=== PATIENT | female | born 1970 | race Caucasian/White ===

== ENCOUNTER 2021-08-25 09:54 | Outpatient (REF) | payer BC, OTHER, SELFPAY ==
[2021-08-25 14:06] LABS: MANUAL DIFF FLAG NO
[2021-08-25 14:17] LABS: Basophils Absolute Auto 0.1 X10*3/uL (0.0-0.2); Basophils Percent Auto 0.8 % (0-2); Eosinophils Absolute Auto 0.1 X10*3/uL (0.0-0.4); Eosinophils Percent Auto 1.6 % (0-4); Hematocrit 44.8 % (37-47); Hemoglobin 15.3 g/dl (12.0-16.0); Imm Gran Abs Auto 0.03 X10*3/uL (0.00-0.03); Imm Gran Pct Auto 0.4 % (0.0-0.4); Lymphocytes Absolute Auto 2.3 X10*3/uL (1.2-4.9); Lymphocytes Percent Auto 28.2 % (20-40); Mean Corpuscular HGB Conc 34.2 g/dl (31.0-35.0); Mean Corpuscular Hemoglobin 31.2 pg (27.0-33.0); Mean Corpuscular Volume 91.2 fL (80-98); Mean Platelet Volume 11.5 fL (9.4-12.3); Monocytes Absolute Auto 0.6 X10*3/uL (0.1-1.2); Monocytes Percent Auto 7.8 % (2-11); Neutrophils Absolute Auto 4.9 X10*3/uL (2.0-8.3); Neutrophils Percent Auto 61.2 % (45-73); Platelet Count 321 X10*3/uL (160-400); Red Blood Count 4.91 X10*6/uL (4.20-5.50); Red Cell Distribution Width 11.7 % (11.0-16.0)
[2021-08-25 14:34] LABS: Alanine Aminotransferase 29 U/L (0-31); Albumin Level 3.7 g/dL (3.5-5.0); Alkaline Phosphatase 66 U/L (39-117); Anion Gap 12 (12-20); Aspartate Amino Transferase 16 U/L (5-31); Bilirubin Total 0.3 mg/dL (0.0-1.0); Blood Urea Nitrogen 10 mg/dL (9-16); Calcium 9.1 mg/dL (8.4-10.2); Carbon Dioxide 29 mmol/L (22-29); Chloride 100 mmol/L (96-108); Estimated Glomerular Filt Rate > 60; Glucose Random 366 mg/dL (60-115); Potassium 4.2 mmol/L (3.3-5.1); Sodium 137 mmol/L (135-145); Total Protein 6.5 g/dL (6.5-8.0)
[2021-08-25 14:50] LABS: Free T4 (Free Thyroxine) 0.86 ng/dL (0.71-1.85); Thyroid Stimulating Hormone 1.99 uIU/mL (0.32-4.0)
== END 2021-08-25 09:55 | disposition home or self-care (01) ==
LOC: HO.10HDL 09:54
PROVIDERS: Visit Provider Internal Medicine
DX: R42 Dizziness and giddiness (principal); I10 Essential (primary) hypertension; R63.5 Abnormal weight gain; Z87.09 Personal history of other diseases of the respiratory system
CPT/HCPCS: 36415; 80053; 84439; 84443; 85025

== ENCOUNTER 2021-09-28 07:06 | Outpatient (REF) | payer BC, SELFPAY ==
[2021-09-28 08:37] LABS: Estimated Average Glucose 203 mg/dL; Hemoglobin A1c % 8.7 %
[2021-09-28 08:40] LABS: Anion Gap 13 (12-20); Blood Urea Nitrogen 11 mg/dL (9-16); Calcium 9.3 mg/dL (8.4-10.2); Carbon Dioxide 27 mmol/L (22-29); Chloride 106 mmol/L (96-108); Cholesterol 232 mg/dL; Estimated Glomerular Filt Rate > 60; Glucose Fasting 126 mg/dL (60-99); HDL Cholesterol 42 mg/dL; LDL Cholesterol Calculated 153 mg/dl; Potassium 4.1 mmol/L (3.3-5.1); Sodium 142 mmol/L (135-145); Triglycerides 185 mg/dL
[2021-09-28 09:16] LABS: Creatinine Urine 255.16 mg/dL; Microalbum/Creatinine Ratio Ur 23.5 ug/mg cr
== END 2021-09-28 07:07 | disposition home or self-care (01) ==
LOC: HO.LAB 07:06
PROVIDERS: PCP Internal Medicine; Visit Provider Internal Medicine
DX: E11.9 Type 2 diabetes mellitus without complications (principal); E78.00 Pure hypercholesterolemia, unspecified
CPT/HCPCS: 36415; 80048; 80061; 82043; 83036

== ENCOUNTER 2021-12-31 08:30 | Outpatient (REF) | payer BC, SELFPAY ==
[2021-12-31 10:45] LABS: Estimated Average Glucose 120 mg/dL; Hemoglobin A1c % 5.8 %
[2021-12-31 10:47] LABS: Alanine Aminotransferase 27 U/L (0-31); Alkaline Phosphatase 66 U/L (39-117); Anion Gap 10 (12-20); Aspartate Amino Transferase 22 U/L (5-31); Bilirubin Total 0.6 mg/dL (0.0-1.0); Blood Urea Nitrogen 12 mg/dL (9-16); Calcium 9.8 mg/dL (8.4-10.2); Carbon Dioxide 31 mmol/L (22-29); Chloride 103 mmol/L (96-108); Cholesterol 203 mg/dL; Estimated Glomerular Filt Rate > 60; Glucose Fasting 103 mg/dL (60-99); HDL Cholesterol 52 mg/dL; LDL Cholesterol Calculated 125 mg/dl; Potassium 4.2 mmol/L (3.3-5.1); Sodium 140 mmol/L (135-145); Total Protein 7.2 g/dL (6.5-8.0); Triglycerides 131 mg/dL
== END 2021-12-31 08:31 | disposition home or self-care (01) ==
LOC: HO.10HDL 08:30
PROVIDERS: Visit Provider Internal Medicine
DX: E11.9 Type 2 diabetes mellitus without complications (principal); E78.00 Pure hypercholesterolemia, unspecified
CPT/HCPCS: 36415; 80053; 80061; 83036

== ENCOUNTER 2022-09-20 15:14 | Outpatient (REF) | payer BC, SELFPAY ==
--- NOTE | ~2022-09-20 | US_ITS ---
EXAMINATION: US EXTRACRANIAL CAROTID DUPLEX, BILATERAL CLINICAL INFORMATION: Stroke COMPARISON: None TECHNIQUE: Real-time ultrasound and Doppler techniques (integrating B-mode 2-D vascular images, Doppler spectral analysis and color-flow Doppler imaging) were utilized to interrogate the extracranial carotid arteries, the vertebral arteries and proximal subclavian arteries bilaterally. The degree of stenosis is determined by criteria similar to NASCET. FINDINGS: Right Side: 1. There is moderate atherosclerotic plaque seen in the bifurcation/proximal ICA region. 2. The common carotid artery PSV proximally is 89 cm/s and distally 94 cm/s. 3. The proximal internal carotid artery velocities are 168 cm/s systolic and 50 cm/s diastolic. 4. The proximal external carotid artery PSV is 118 cm/s. 5. The vertebral artery shows antegrade flow. 6. The subclavian artery waveforms are normal. Left Side: 1. There is mild atherosclerotic plaque seen in the bifurcation/proximal ICA region. 2. The common carotid artery PSV proximally is 98 cm/s and distally 90 cm/s. 3. The proximal internal carotid artery velocities are 79 cm/s systolic and 25 cm/s diastolic. 4. The proximal external carotid artery PSV is 78 cm/s. 5. The vertebral artery shows antegrade flow. 6. The subclavian artery waveforms are normal. US/US carotid duplex BI IMPRESSION: 1. RIGHT: Moderate, hemodynamically significant stenosis of the proximal right internal carotid artery corresponding to a 50-79% stenosis by velocity criteria. 2. LEFT: Minimal, non-hemodynamically significant stenosis of the proximal left internal carotid artery corresponding to a 0-49% stenosis by velocity criteria.
== END 2022-09-20 15:15 | disposition home or self-care (01) ==
LOC: HO.HMGCX 15:14
PROVIDERS: PCP Internal Medicine; Visit Provider Internal Medicine
DX: I63.9 Cerebral infarction, unspecified (principal)
CPT/HCPCS: 93880

== ENCOUNTER 2022-12-27 10:13 | Outpatient (REF) | payer BC, SELFPAY ==
[2022-12-27 10:37] LABS: MANUAL DIFF FLAG NO
[2022-12-27 10:45] LABS: Basophils Absolute Auto 0.1 X10*3/uL (0.0-0.2); Basophils Percent Auto 1.4 % (0-2); Eosinophils Absolute Auto 0.3 X10*3/uL (0.0-0.4); Hematocrit 46.6 % (37.0-47.0); Hemoglobin 16.1 g/dl (12.0-16.0); Imm Gran Abs Auto 0.02 X10*3/uL (0.00-0.03); Imm Gran Pct Auto 0.3 % (0.0-0.4); Lymphocytes Absolute Auto 2.2 X10*3/uL (1.2-4.9); Lymphocytes Percent Auto 33.2 % (20-40); Mean Corpuscular HGB Conc 34.5 g/dl (31.0-35.0); Mean Corpuscular Hemoglobin 30.4 pg (27.0-33.0); Mean Corpuscular Volume 88.1 fL (80.0-98.0); Mean Platelet Volume 10.3 fL (9.4-12.3); Monocytes Absolute Auto 0.5 X10*3/uL (0.1-1.2); Monocytes Percent Auto 8.1 % (2-11); Neutrophils Absolute Auto 3.5 x10*3/uL (2.0-8.3); Platelet Count 306 X10*3/uL (160-400); Red Blood Count 5.29 X10*6/uL (4.20-5.50); Red Cell Distribution Width 11.9 % (11.0-16.0); White Blood Count 6.5 X10*3/uL (4.8-10.8)
[2022-12-27 11:04] LABS: Estimated Average Glucose 272 mg/dL; Hemoglobin A1c % 11.1 %
[2022-12-27 11:54] LABS: Alanine Aminotransferase 46 U/L (0-31); Alkaline Phosphatase 99 U/L (39-117); Anion Gap 12 (12-20); Aspartate Amino Transferase 31 U/L (5-31); Bilirubin Total 0.9 mg/dL (0.0-1.0); Blood Urea Nitrogen 9 mg/dL (9-16); Calcium 9.4 mg/dL (8.4-10.2); Carbon Dioxide 31 mmol/L (22-29); Chloride 101 mmol/L (96-108); Cholesterol 228 mg/dL; Estimated Glomerular Filt Rate > 60; Glucose Fasting 238 mg/dL (60-99); HDL Cholesterol 50 mg/dL; LDL Cholesterol Calculated 151 mg/dl; Potassium 4.3 mmol/L (3.3-5.1); Sodium 140 mmol/L (135-145); Triglycerides 138 mg/dL
[2022-12-27 12:01] LABS: Free T4 (Free Thyroxine) 0.88 ng/dL (0.71-1.85)
[2022-12-27 14:19] LABS: Creatinine Urine 40.55 mg/dL; Microalbum/Creatinine Ratio Ur 24.6 ug/mg cr
== END 2022-12-27 10:14 | disposition home or self-care (01) ==
LOC: HO.10HDL 10:13
PROVIDERS: Visit Provider Internal Medicine
DX: Z00.00 Encounter for general adult medical examination without abnormal findings (principal); E11.9 Type 2 diabetes mellitus without complications
CPT/HCPCS: 36415; 80053; 80061; 82043; 83036; 84439; 85025

== ENCOUNTER 2023-02-17 09:58 | Outpatient (REF) | payer BC, SELFPAY ==
[2023-02-17 11:22] LABS: Alanine Aminotransferase 34 U/L (0-31); Albumin Level 3.8 g/dL (3.5-5.0); Alkaline Phosphatase 92 U/L (39-117); Anion Gap 13 (12-20); Aspartate Amino Transferase 25 U/L (5-31); Bilirubin Total 1.1 mg/dL (0.0-1.0); Blood Urea Nitrogen 10 mg/dL (9-16); Calcium 9.1 mg/dL (8.4-10.2); Carbon Dioxide 29 mmol/L (22-29); Chloride 103 mmol/L (96-108); Estimated Glomerular Filt Rate > 60; Glucose Random 219 mg/dL (60-115); Potassium 4.3 mmol/L (3.3-5.1); Sodium 141 mmol/L (135-145); Total Protein 6.7 g/dL (6.5-8.0)
[2023-02-17 11:37] LABS: Estimated Average Glucose 286 mg/dL; Hemoglobin A1c % 11.6 %
[2023-02-17 11:40] LABS: Free T4 (Free Thyroxine) 0.83 ng/dL (0.71-1.85); Thyroid Stimulating Hormone 3.68 uIU/mL (0.32-4.0)
== END 2023-02-17 09:59 | disposition home or self-care (01) ==
LOC: HO.10HDL 09:58
PROVIDERS: Visit Provider Internal Medicine
DX: I10 Essential (primary) hypertension (principal); E11.9 Type 2 diabetes mellitus without complications; Z86.39 Personal history of other endocrine, nutritional and metabolic disease
CPT/HCPCS: 36415; 80053; 83036; 84439; 84443

== ENCOUNTER 2023-06-03 07:30 | Outpatient (REF) | payer BC, SELFPAY ==
[2023-06-03 08:29] LABS: Estimated Average Glucose 180 mg/dL; Hemoglobin A1c % 7.9 %
[2023-06-03 08:53] LABS: Anion Gap 16 (12-20); Blood Urea Nitrogen 15 mg/dL (9-16); Calcium 10.2 mg/dL (8.4-10.2); Carbon Dioxide 26 mmol/L (22-29); Chloride 103 mmol/L (96-108); Estimated Glomerular Filt Rate 58; Glucose Random 136 mg/dL (60-115); Potassium 4.1 mmol/L (3.3-5.1); Sodium 141 mmol/L (135-145)
== END 2023-06-03 07:31 | disposition home or self-care (01) ==
LOC: HO.LAB 07:30
PROVIDERS: PCP Internal Medicine; Visit Provider Internal Medicine
DX: E11.9 Type 2 diabetes mellitus without complications (principal)
CPT/HCPCS: 36415; 80048; 83036

== ENCOUNTER 2025-10-14 06:35 | Emergency (ER) | payer BC, SELFPAY ==
--- NOTE | ~2025-10-14 | CT_ITS ---
EXAMINATION: CT CERVICAL SPINE WITHOUT CONTRAST CLINICAL INFORMATION: Fall COMPARISON: None available. TECHNIQUE: Axial imaging. Sagittal and coronal reconstructions. This CT examination was performed using dose optimization techniques as appropriate, variously including the following: *Automated exposure control *Adjustment of mA and/or kV according to patient size (this includes techniques or standardized protocols for targeted exams where dose is matched to indication/reason for exam; i.e. extremities or head) *Use of iterative reconstruction technique FINDINGS: The atlantooccipital and atlantoaxial articulations remain well aligned. Straightening of the normal cervical lordosis. Mild anterolisthesis of C4 on C5, probably degenerative. No CT evidence of acute fracture or traumatic subluxation. Predens space is maintained. Moderate - severe C6-7 disc degeneration. Multilevel facet degeneration. Bony central canal is maintained. No prevertebral soft tissue swelling. No suspicious thyroid findings. No suspicious findings in lung apices. CT/CT cervical spine wo IV con IMPRESSION: 1. No CT evidence of acute fracture or traumatic subluxation. 2. Cervical spondylosis. Fleischner guidelines were followed. Electronically signed by: Gage Fair MD 10/14/2025 09:01 AM [facility]
--- NOTE | ~2025-10-14 | XR_ITS ---
EXAMINATION: XR CHEST CLINICAL INFORMATION: weakness COMPARISON: None available. TECHNIQUE: Frontal view of the chest was obtained. FINDINGS: No significant abnormality is noted involving the heart, lungs, mediastinum, bony thorax or soft tissues. XR/XR chest 1V IMPRESSION: Unremarkable examination. Electronically signed by: Caity John MD 10/14/2025 07:51 AM [facility]
--- NOTE | ~2025-10-14 | CT_ITS ---
EXAMINATION: CT HEAD WITHOUT CONTRAST CLINICAL INFORMATION: Fall; 55-year-old female. COMPARISON: None available. TECHNIQUE: Contiguous axial imaging was performed from the skull base to vertex without intravenous administration of contrast. This CT examination was performed using dose optimization techniques as appropriate, variously including the following: *Automated exposure control *Adjustment of mA and/or kV according to patient size (this includes techniques or standardized protocols for targeted exams where dose is matched to indication/reason for exam; i.e. extremities or head) *Use of iterative reconstruction technique FINDINGS: There is no evidence of intracranial hemorrhage or extra-axial fluid collection. There is no mass effect, or edema. No CT evidence of acute territorial infarct. Ventricles, sulci, and cisterns are normal in size and configuration for patient age. No hydrocephalus. No midline shift. Negative hyperdense MCA sign. Negative insular ribbon sign. There are several old lacunar type infarcts in the bilateral gangliocapsular regions. Largest is in the left inferior dominguez radiata measuring approximately 1.7 x 1.8 cm. Patchy periventricular and deep white matter hypoattenuation is consistent with mild small vessel ischemic changes. Normal pituitary. Atheromatous calcification of the bilateral carotid siphons. Globes and orbital contents image normally. No extracranial soft tissue abnormalities. The paranasal sinuses, mastoid air cells, and tympanic cavities are normally aerated. No suspicious bony abnormalities. There are no acute fractures evident. CT/CT head/brain wo IV con IMPRESSION: 1. No acute intracranial abnormality. No fracture evident. 2. There are several old lacunar type infarcts in the bilateral gangliocapsular regions, the largest in the left inferior dominguez radiata measuring approximately 1.7 x 1.8 cm. Electronically signed by: Dean Hewitt MD 10/14/2025 09:00 AM [facility]
[2025-10-14 06:42] VITALS: BP 174/79; PULSE 63; RESP 20; TEMP 34.8; O2SAT 100; BMI 32.1
--- NOTE | 2025-10-14 06:54 | ECG_ITS ---
Test Reason : cp Blood Pressure : */* mmHG Vent. Rate : 62 BPM Atrial Rate : 62 BPM P-R Int : 110 ms QRS Dur : 80 ms QT Int : 430 ms P-R-T Axes : 24 -11 53 degrees QTcB Int : 436 ms Sinus rhythm with short MN cannot exclude old Septal infarct , age undetermined ; could be related to body habitus and lead placement Borderline ECG No previous ECGs available Referred By: Sariah Mcrae Electronically Signed By: BINTA KHAN
[2025-10-14 06:55] LABS: Glucose, Whole Blood 183 mg/dL (60-115)
[2025-10-14 07:12] LABS: Venous Blood Gas Refer to POC result
[2025-10-14 07:13] LABS: VBG HCO3 24 mmol/L (22-26); VBG O2 % Saturation 65.0 %
[2025-10-14 07:13] LABS: MANUAL DIFF FLAG NO
[2025-10-14 07:15] LABS: Hematocrit 50.6 % (37.0-47.0); Hemoglobin 17.4 g/dl (12.0-16.0); Imm Gran Abs Auto 0.02 X10*3/uL (0.00-0.03); Imm Gran Pct Auto 0.3 % (0.0-0.4); Lymphocytes Absolute Auto 2.0 X10*3/uL (1.2-4.9); Mean Corpuscular HGB Conc 34.4 g/dl (31.0-35.0); Mean Corpuscular Hemoglobin 30.5 pg (27.0-33.0); Mean Corpuscular Volume 88.6 fL (80.0-98.0); NRBC Abs Auto 0.000 X10*3/uL (0.0-0.012); NRBC Pct Auto 0.0 /100WBC (0.0-0.2); Platelet Count 288 X10*3/uL (160-400); Red Blood Count 5.71 X10*6/uL (4.20-5.50); White Blood Count 7.2 X10*3/uL (4.8-10.8)
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
[2025-10-14 07:33] LABS: Alanine Aminotransferase 60 U/L (0-31); Albumin Level 4.2 g/dL (3.5-5.0); Alkaline Phosphatase 70 U/L (39-117); Anion Gap 16 (12-20); Aspartate Amino Transferase 50 U/L (5-31); Blood Urea Nitrogen 17 mg/dL (9-16); Calcium 9.5 mg/dL (8.4-10.2); Carbon Dioxide 24 mmol/L (22-29); Chloride 104 mmol/L (96-108); Creatinine Clr Calc Pharmacy 79.8; Estimated Glomerular Filt Rate > 60; Lipase 25 U/L (8-78); Magnesium 1.7 mg/dL (1.6-2.6); Potassium 3.9 mmol/L (3.3-5.1); Sodium 140 mmol/L (135-145); Total Protein 7.6 g/dL (6.5-8.0)
[2025-10-14 07:41] LABS: Troponin-I High Sensitivity < 2.7 ng/L (<3.5-17.0)
[2025-10-14 07:43] LABS: Ammonia 18 umol/L (13-55)
[2025-10-14 07:53] LABS: Resp Syncy Virus RNA Qual PCR NEGATIVE (Negative); SARS COV2 PCR INHOUSE NEGATIVE (Negative)
[2025-10-14 08:01] VITALS: BP 152/80; BP 170/95; PULSE 62; PULSE 78
[2025-10-14 08:03] VITALS: BP 143/82; PULSE 77
[2025-10-14 08:25] LABS: Free T4 (Free Thyroxine) 1.10 ng/dL (0.71-1.85)
[2025-10-14 10:12] VITALS: BP 173/95; PULSE 66; RESP 12; TEMP 36.7; O2SAT 98
[2025-10-14 10:44] LABS: Troponin-I High Sensitivity < 2.7 ng/L (<3.5-17.0)
[2025-10-14 10:50] LABS: D Dimer High Sensitivity 189 NG/ML
[2025-10-14 13:04] LABS: Appearance Urine Clear; Glucose Urine UA 250 mg/dL (Negative); PH 6.0 (5.0-9.0); Specific Gravity - Urine 1.015 (1.005-1.025); UMIC TRIGGER UACC YES
[2025-10-14 13:14] LABS: UACC Culture Trigger YES
[2025-10-14 13:35] VITALS: BP 173/95; PULSE 66; RESP 12; TEMP 36.7; O2SAT 98
== END 2025-10-14 13:35 | disposition home or self-care (01) ==
PROVIDERS: Emergency Provider Emergency Medicine
DX: R55 Syncope and collapse (principal); R53.83 Other fatigue; E07.9 Disorder of thyroid, unspecified; E11.9 Type 2 diabetes mellitus without complications; I10 Essential (primary) hypertension; Z86.73 Personal history of transient ischemic attack (TIA), and cerebral infarction without residual deficits; Z79.82 Long term (current) use of aspirin; Z91.81 History of falling; Z03.818 Encounter for observation for suspected exposure to other biological agents ruled out
CPT/HCPCS: 36415; 70450; 71045; 72125; 80048; 80076; 81001; 81003; 82140; 82550; 82803; 82947; 83690; 83735; 84439; 84443; 84484; 85025; 85379; 86140; 87086; 87637; 93005; 99284

== ENCOUNTER → 2025-10-14 06:54 | Outpatient (BNV) | payer BC, SELFPAY | PROVIDERS: Emergency Provider Emergency Medicine; Visit Provider Radiology Diagnostic Radiology | DX: M47.812 Spondylosis without myelopathy or radiculopathy, cervical region (principal); I63.81 Other cerebral infarction due to occlusion or stenosis of small artery; Z04.3 Encounter for examination and observation following other accident; R53.1 Weakness | CPT/HCPCS: 70450; 71045; 72125 ==

== ENCOUNTER → 2025-10-14 06:54 | Outpatient (BNV) | payer BC, SELFPAY | PROVIDERS: Emergency Provider Emergency Medicine; Visit Provider Internal Medicine | DX: R07.9 Chest pain, unspecified (principal) | CPT/HCPCS: 93010 ==

== ENCOUNTER 2025-10-17 06:57 | Observation (INO) | payer BC, SELFPAY ==
[2025-10-17] VITALS (10 sets, daily range): BP systolic 148–200; BP diastolic 80–94; PULSE 61–81; RESP 16–20; TEMP 36.7–36.8; O2SAT 94–97; BMI 31.0
--- NOTE | ~2025-10-17 | MR_ITS ---
CLINICAL HISTORY: prior stroke, possible seizure, syncope MRI Brain Without Contrast: Comparison: CT 10/17/2025 Findings: Non restricted diffusion, (FLAIR positive, T2 positive) is present involving left basal ganglia and internal capsule indicating subacute/chronic infarction older than 10-15 days. An 8.2 mm remote lacunar infarct is present in right subinsular cortex Mass effect: No shift in midline structures Intracranial bleeding: No intraparenchymal bleeding or abnormal extra axial blood fluid collections Pituitary: Normal in size Visualized sinuses: Clear Orbital structures: Unremarkable Calvarium: There is no abnormal meningeal thickening or nodularity Impression: Non restricted diffusion abnormality involving basal ganglion left internal capsule measuring 2.1 x 1.2 cm consistent with chronic stroke older than 10-15 days. This document has been electronically signed by: Francesco Sotomayor MD on 10/18/2025 18:46:55
--- NOTE | ~2025-10-17 | CT_ITS ---
EXAMINATION: CT CERVICAL SPINE WITHOUT CONTRAST CLINICAL INFORMATION: Fall, neck pain COMPARISON: 10/14/2025. TECHNIQUE: Spiral CT imaging of the cervical spine performed in axial plane without contrast. Multiplanar reformatted images were constructed from the axial data set. This CT examination was performed using dose optimization techniques as appropriate, variously including the following: *Automated exposure control *Adjustment of mA and/or kV according to patient size (this includes techniques or standardized protocols for targeted exams where dose is matched to indication/reason for exam; i.e. extremities or head) *Use of iterative reconstruction technique FINDINGS: CORONAL ALIGNMENT: -Normal. SAGITTAL ALIGNMENT: -Mild straightening of the normal lordosis. -No evidence of traumatic subluxation. -There is a 2 mm degenerative anterolisthesis of C4 on C5. Sagittal alignment is otherwise anatomic. C1-C2 AND CRANIOCERVICAL JUNCTION: -Intact and normally aligned. There are mild degenerative changes in the anterior atlantoaxial joint. VERTEBRAL BODIES AND FACETS: -There is no fracture, compression deformity, or suspicious bone lesion. -There is normal facet alignment bilaterally. There are hypertrophic degenerative facet changes on the right mainly at C4-5. DISCS: -Moderate disc degeneration is present at C6-7. Mild disc degeneration is present at C3-4 and C4-5. CENTRAL CANAL: -No evidence of high-grade central canal narrowing or large disc herniation allowing for modality limitations. PREVERTEBRAL AND PARAVERTEBRAL SOFT TISSUES: -There is no evidence of prevertebral or paravertebral soft tissue swelling, edema, or abnormal fluid collection. -The thyroid demonstrates a 6 mm nodule in the inferior right pole. The thyroid is otherwise normal. There is no mass or abnormal lymphadenopathy within the neck. -There are mild to moderate bilateral carotid bulb calcifications. LUNG APICES: -Clear bilaterally. No pneumothorax. CT/CT cervical spine wo IV con IMPRESSION: 1. There is no CT evidence of acute cervical spine fracture or injury. 2. There is mild cervical spondylosis as discussed. Electronically signed by: Dean Hewitt MD 10/17/2025 08:47 AM [facility]
--- NOTE | ~2025-10-17 | CT_ITS ---
EXAMINATION: CT HEAD WITHOUT CONTRAST CLINICAL INFORMATION: fall head strike COMPARISON: September. TECHNIQUE: Contiguous axial imaging was performed from the skull base to vertex without intravenous administration of contrast. This CT examination was performed using dose optimization techniques as appropriate, variously including the following: *Automated exposure control *Adjustment of mA and/or kV according to patient size (this includes techniques or standardized protocols for targeted exams where dose is matched to indication/reason for exam; i.e. extremities or head) *Use of iterative reconstruction technique DLP: 738.84 mGy-cm FINDINGS: No acute cortical disruption in the right ovarian nor the skull base. No acute intracranial hemorrhage, mass effect, midline shift, hydrocephalus or herniation. Lipscomb-white matter differentiation is normal. Old lacunar infarcts in the basal ganglia and frontal dominguez radiata white matter. No increased density within the MCA's. Calcified plaques in the cavernous supracavernous segments both ICAs. Posterior cranial fossa contents demonstrated no acute hemorrhage. Normal position of the cerebellar tonsils. Sellar/suprasellar region demonstrated no gross masses. Poor pneumatization of the frontal sinuses. No air-fluid levels in the paranasal sinuses. Tympanic cavities and mastoid air cells are aerated. CT/CT head/brain wo IV con IMPRESSION: No acute fracture, bony calvarium. No acute intracranial hemorrhage. Old lacunar infarcts. Small vessel occlusive disease. Atherosclerosis disease, intracranial. Electronically signed by: Juan Denny MD 10/17/2025 08:47 AM [facility]
--- NOTE | 2025-10-17 07:20 | ECG_ITS ---
Test Reason : falll Blood Pressure : */* mmHG Vent. Rate : 62 BPM Atrial Rate : 62 BPM P-R Int : 128 ms QRS Dur : 80 ms QT Int : 422 ms P-R-T Axes : 42 -3 47 degrees QTcB Int : 428 ms Normal sinus rhythm Normal ECG When compared with ECG of 14-Oct-2025 07:10, Criteria for Septal infarct are no longer Present Referred By: Joe Dean Electronically Signed By: BINTA KHAN
--- NOTE | 2025-10-17 07:36 | ED_ITS ---
HPI - Syncope General Chief Complaint: Syncope Stated Complaint: Syncope Time Seen by Provider: 10/17/25 07:20 Source: patient Mode of arrival: ambulatory Limitations: no limitations History of Present Illness ED Provider: ASHLEY Dean HPI narrative: Chief Complaint: ?I passed out in the shower again.? History of Present Illness: Ally presents after a syncopal episode that occurred in the shower at approximately 05:15 AM today. This is the second episode this week; both occurred in the morning while showering. She reports a prodrome of light- headedness immediately before losing consciousness but denies room spinning. She was unable to lower herself before the event because ?it happened very quickly.? She denies chest pain, shortness of breath, nausea, vomiting, abdominal pain, or headache before or after the events. No prior history of syncope before this week. She was evaluated here previously on the for the same complaint. Currently feels ?fine,? though tired. Not med compliant. On Aspirin but not on blood thinners. reports that she was very cold this morning. Related Data Home Medications ?Medication ?Instructions ?Recorded ?Confirmed atorvastatin 10 mg tablet 1 tab PO BEDTIME 09/13/22 glipizide 2.5 mg tablet, extended 1 tab PO DAILY 09/1301/03/23 release 24 hr aspirin 81 mg chewable tablet 81 mg PO DAILY 12/14/22 01/03/23 losartan 25 mg tablet 25 mg PO DAILY 01/03/2306/18 Allergies Allergy/AdvReac Type Severity Reaction Status Date / Time No Known Allergies Allergy Verified 10/17/25 07:06 Review of Systems 2 Review of Systems: ? Constitutional: +tired. ? Cardiovascular: denies chest pain. ? Respiratory: denies shortness of breath. ? Gastrointestinal: denies nausea, vomiting, abdominal pain. ? Neurologic: +syncope, +light-headedness; denies headache, denies room spinning (vertigo). All other systems not discussed. Yes all other systems are reviewed and are negative PMFSH Past Medical History Attestation statement: The following information was validated with the patient. Source: old records reviewed and nursing notes reviewed Medical History HTN (hypertension) CVA (cerebral vascular accident) Surgical History History of cholecystectomy H/O: Family History Family History Father Alcoholic cirrhosis of liver Mother Pancreatic cancer Social History Social History Household Members: Spouse and Children Housing: House Alcohol intake: current Alcohol intake frequency: a few times a month Patient Tobacco Use Status: Never used Tobacco Smoked in Last 30 Days: No Use of substances other than those prescribed or required for medical reasons: No Advance Directives: No Advance Directives Information Provided: No service: No Current occupational status: employed Physical Exam 2 Exam: Exam: Appearance: Alert.? Oriented X3.? No acute distress.? Head: Normocephalic, atraumatic, no step-offs or deformities Eyes: Pupils equal, round and reactive to light.? Neck: Normal inspection.? Neck supple.? CVS: Normal heart rate and rhythm.? Pulses normal.? Respiratory: No respiratory distress.? Breath sounds normal.? Abdomen: Soft and nontender.? Skin: Skin warm and dry.? Normal skin color.? Normal skin turgor.? Extremities: No lower extremity edema.? No calf ttp. 5/5 strength to bilateral upper and lower extremities Back: No midline tenderness, no C-spine tenderness, full range of motion, no CVA tenderness bilaterally. Neuro: Oriented X 3.? No motor deficit.? No sensory deficit. CN 2-12 intact. Nagative Romberg. Pronator drift. Normal finger to nose. Vital Signs: Vital Signs: Last Vital Signs Temp 98.2 F 10/17/25 08:08 Pulse 66 10/17/25 08:08 Resp 18 10/17/25 08:08 BP 163/86 H 10/17/25 08:08 Pulse Ox 97 10/17/25 07:02 O2 Del Method Room Air 10/17/25 07:02 BMI result Body Mass Index 31.0 vss Course Reevaluation(s) Reevaluation #1: Patient's CBC appears to be slightly hemoconcentrated this could be in the setting of poor p.o. intake/dehydration. Chemistry with no acute findings needing intervention troponin negative nonischemic EKG. TSH and free T3 pending. Coags with negative D-dimer once again no indication for CTA low suspicion for PE. Salicylates acetaminophen negative. CT head and cervical spine unremarkable there are old lacunar infarcts and small-vessel occlusive disease noted. Patient has yet to provide us with a urine urine and urine toxicology still pending and hospitalist aware Time: 09:18 Medical Decision Making Medical Decision Making MDM Narrative: 22-year-old woman with two morning shower-associated syncopal episodes this week, prodrome of light-headedness, now asymptomatic. Neuro exam normal. Will pursue diagnostic evaluation to rule out cardiac, orthostatic, metabolic, or neurologic causes. Problem #1: Syncope Assessment: Recurrent syncope (two episodes in one week) with prodromal light- headedness; no seizure activity, no trauma, neuro exam benign. Differential includes orthostatic hypotension, cardiac dysrhythmia, electrolyte disturbance, and other causes. Plan: * Repeat work-up as done on prior visit: basic labs, electrolytes, and orthostatic vitals. * 12-lead ECG (Holter monitor to be arranged through cardiology). * Discussed need for outpatient cardiology evaluation and possible Holter monitor for ongoing assessment. Problem #2: Diabetes mellitus / Hyperlipidemia Assessment: Chronic conditions noted in history; not the focus of today?s visit. Plan: * Will defer to primary care for routine management. Problem #3: Possible head strike Assessment: Patient experienced syncope in the shower; possible head strike not witnessed, but risk present given sudden loss of consciousness. Plan: * Monitor for signs of concussion or intracranial injury (headache, vomiting, confusion, focal neurologic deficits). * Neuro exam currently normal. * Patient instructed to return for worsening symptoms. * Will obtain head and neck CT . Differential Diagnosis Differential Diagnoses: The differential diagnosis associated with the presentation includes * Vasovagal (neurally-mediated) syncope: Most common cause in young adults; often triggered by standing, emotional stress, or pain. Shower environment and prodrome of light-headedness are consistent. * Orthostatic hypotension: Can be related to medication (losartan) or autonomic dysfunction from diabetes. Occurs with postural changes, especially in the morning. * Hypoglycemia: Diabetes is a risk factor; may present with light-headedness and syncope, especially if fasting or insulin use. * Cardiac arrhythmia (e.g., paroxysmal SVT, AV block): Sudden loss of consciousness without warning; important to rule out with ECG and Holter monitoring. * Electrolyte disturbance: Can cause syncope, especially in patients with diabetes or on medications affecting renal function. * Structural cardiac disease (e.g., hypertrophic cardiomyopathy, valvular disease): Less likely given age and lack of cardiac symptoms, but should be considered. * Pulmonary embolism: Less likely in absence of chest pain or dyspnea, but important to rule out in acute unexplained syncope. Admission/Observation Consideration of admission/observation: Escalation of care including admission/observation considered Consult Healthcare Provider Management of the patient was discussed with: Hospitalist (ASHLEY Bedoya accepts admission - UA and DIETRICH pending ) Lab Data MDM Lab Attestation statement: I reviewed the patient's lab results. 10/17/25 07:58 10/17/25 08:29 Labs: Lab Results 10/17/25 10/17/25 Range/Units 07:58 08:29 WBC 8.8 (4.8-10.8) X10*3/uL RBC 5.61 H (4.20-5.50) X10*6/uL Hgb 17.1 H (12.0-16.0) g/dl Hct 49.6 H (37.0-47.0) % MCV 88.4 (80.0-98.0) fL MCH 30.5 (27.0-33.0) pg MCHC 34.5 (31.0-35.0) g/dl RDW 12.1 (11.0-16.0) % Plt Count 285 (160-400) X10*3/uL MPV 10.2 (9.4-12.3) fL Immature Gran % (Auto) 0.2 (0.0-0.4) % Neut % (Auto) 74.1 H (45-73) % Lymph % (Auto) 16.8 L (20-40) % Sutton % (Auto) 6.8 (2-11) % Eos % (Auto) 1.3 (0-4) % Baso % (Auto) 0.8 (0-2) % Lymph # (Auto) 1.5 (1.2-4.9) X10*3/uL Sutton # (Auto) 0.6 (0.1-1.2) X10*3/uL Eos # (Auto) 0.1 (0.0-0.4) X10*3/uL Baso # (Auto) 0.1 (0.0-0.2) X10*3/uL Abs Immat Gran (auto) 0.02 (0.00-0.03) X10*3/uL Absolute Neuts (auto) 6.5 (2.0-8.3) x10*3/uL Absolute Nucleated RBC 0.000 (0.0-0.012) X10*3/uL Nucleated RBC % (auto) 0.0 (0.0-0.2) /100WBC PT 11.6 (11.2-13.5) SEC INR 0.9 (0.9-1.1) D-Dimer High Sensitivty < 150 NG/ML Sodium 143 (135-145) mmol/L Potassium 4.0 (3.3-5.1) mmol/L Chloride 107 (96-108) mmol/L Carbon Dioxide 25 (22-29) mmol/L Anion Gap 15 (12-20) BUN 15 (9-16) mg/dL Creatinine 0.90 (0.5-1.4) mg/dL Estim Creat Clear Calc 77.6 Estimated GFR > 60 Random Glucose 123 H (60-115) mg/dL Calcium 9.5 (8.4-10.2) mg/dL Magnesium 1.8 (1.6-2.6) mg/dL Total Bilirubin 0.8 (0.0-1.0) mg/dL AST 40 H (5-31) U/L ALT 62 H (0-31) U/L Alkaline Phosphatase 74 (39-117) U/L Troponin I High Sens < 2.7 (<3.5-17.0) ng/L Total Protein 7.7 (6.5-8.0) g/dL Albumin 4.3 (3.5-5.0) g/dL Salicylates < 5.0 L (15-30) mg/dL Acetaminophen < 3 (<30) mcg/mL Independent Interpretation I performed an independent interpretation of an: EKG (Normal sinus rhythm Normal ECG When compared with ECG of 14-Oct-2025 07:10, Criteria for Septal infarct are no longer Present) and CT Scan Radiology Impression Discussion of test interpretation with radiology: I have reviewed the radiologist's reading. External Record Review External record reviewed: Inpatient record, Office record, Outpatient record, Prior outpatient labs, Prior outpatient radiology, Primary care record and Outside ED record Chronic Conditions Patient?s care impacted by: Diabetes and Hypertension Critical Care Time Critical Care Time Critical Care Time: Yes Total Critical Care Time: 35 Attestation: I attest to this time spent taking care of the patient, obtaining history, physical, reviewing labs, imaging, treatment of patients condition +/- specialist/hospitalist consult +/- procedure Discharge Plan Discharge Clinical Impression: Syncope, Fatigue Patient Disposition: Admitted As Inpatient Print Language: Panamanian
[2025-10-17 08:03] LABS: MANUAL DIFF FLAG NO
[2025-10-17 08:04] LABS: Hematocrit 49.6 % (37.0-47.0); Hemoglobin 17.1 g/dl (12.0-16.0); Imm Gran Abs Auto 0.02 X10*3/uL (0.00-0.03); Imm Gran Pct Auto 0.2 % (0.0-0.4); Lymphocytes Absolute Auto 1.5 X10*3/uL (1.2-4.9); Mean Corpuscular HGB Conc 34.5 g/dl (31.0-35.0); Mean Corpuscular Hemoglobin 30.5 pg (27.0-33.0); Mean Corpuscular Volume 88.4 fL (80.0-98.0); NRBC Abs Auto 0.000 X10*3/uL (0.0-0.012); NRBC Pct Auto 0.0 /100WBC (0.0-0.2); Platelet Count 285 X10*3/uL (160-400); Red Blood Count 5.61 X10*6/uL (4.20-5.50); White Blood Count 8.8 X10*3/uL (4.8-10.8)
[2025-10-17 08:10] LABS: INTERNATIONAL NORM RATIO 0.9 (0.9-1.1); Prothrombin Time 11.6 SEC (11.2-13.5)
[2025-10-17 08:12] LABS: D Dimer High Sensitivity < 150 NG/ML
--- NOTE | 2025-10-17 08:16 | PC.NURSE ---
pt is alert and oriented, skin pwd, respirations even and unlabored, ls clear, pt reports around 0530 while in the shower had a syncopal episode not sure if she hit her head, the heard the noise and found the pt down in the shower and the reports that it probably took about 10min for the pt to come to and when she did she was pretty confused-out of it as the reports, same think happened on Monday as well, pt denies any injury but is not sure if she hit her head pt is on ASA daily, pt also reports that she knew she was going to pass out was feeling lightheaded prior, denies sob/chest/no respiratory symptoms, ns on the monitor
[2025-10-17 08:49] LABS: Alanine Aminotransferase 62 U/L (0-31); Albumin Level 4.3 g/dL (3.5-5.0); Alkaline Phosphatase 74 U/L (39-117); Anion Gap 15 (12-20); Aspartate Amino Transferase 40 U/L (5-31); Blood Urea Nitrogen 15 mg/dL (9-16); Calcium 9.5 mg/dL (8.4-10.2); Carbon Dioxide 25 mmol/L (22-29); Chloride 107 mmol/L (96-108); Creatinine Clr Calc Pharmacy 77.6; Estimated Glomerular Filt Rate > 60; Magnesium 1.8 mg/dL (1.6-2.6); Potassium 4.0 mmol/L (3.3-5.1); Sodium 143 mmol/L (135-145); Total Protein 7.7 g/dL (6.5-8.0)
[2025-10-17 08:50] LABS: Acetaminophen LAB < 3 mcg/mL (<30); Salicylate < 5.0 mg/dL (15-30)
[2025-10-17 09:01] LABS: Troponin-I High Sensitivity < 2.7 ng/L (<3.5-17.0)
--- NOTE | 2025-10-17 10:00 | PM.IMHP ---
History of Present Illness Date of Service: 10/17/25 Attending physician on admission: Angel Jose Chief Complaint: syncope This is a 55 year old female with history of stroke, DM, HTN, HLD who presents to the emergency department after syncopal event. She was seen in the ED on October 14 after similar episode. She was in her usual state of health, her heard a large crash and found her outside the top on her back looking up, there was no seizure activity reported and she was reportedly unconscious for a few sec. In the emergency department she was monitored for several hours, orthostatic blood pressures were negative, troponin D-dimer were unremarkable. No infection identified, no acute changes on brain CT. She was discharged home with plan for outpatient follow-up with PCP and possible Holter monitor. She returns to the emergency department today with recurrent syncopal episode. She reports she was in her usual state of health, got up this morning and got into the shower. She had no dizziness, shortness of breath, chest pain but passed out. Her found her again half in and half out of the tub. She was reportedly unconscious for nearly 10 minutes. There was no loss of bladder or bowel control, there was no convulsions reported. She denies feeling dizzy, shortness of breath, chest pain. She returned to the emergency department for evaluation. Brain CT again unremarkable for acute changes. Patient reports no changes in her medication recently although she does report that she is forgetful since she had a stroke and may not be taking her medication daily. She has a history of diabetes and does not check her blood sugar. Orthostatic blood pressure checked and again were negative. Patient will be admitted overnight for observation. Review of Systems Review of Systems: Yes all other systems are reviewed and are negative Constitutional: Constitutional: Denies chills and Denies fever(s) Cardiovascular: Cardiovascular: Denies chest pain and Denies palpitations Endocrine: Endocrine: Denies palpitations [facility] Medical History (Updated 10/17/25 @ 10:12 by ASHLEY Marx) T2DM (type 2 diabetes mellitus) HTN (hypertension) CVA (cerebral vascular accident) Family History Father Alcoholic cirrhosis of liver Mother Pancreatic cancer Surgical History History of cholecystectomy H/O: Social History Household Members: Spouse and Children Housing: House Alcohol intake: current Alcohol intake frequency: a few times a month Patient Tobacco Use Status: Never used Tobacco Smoked in Last 30 Days: No Use of substances other than those prescribed or required for medical reasons: No Advance Directives: No Advance Directives Information Provided: No service: No Current occupational status: employed Meds Allergies Allergy/AdvReac Type Severity Reaction Status Date / Time No Known Allergies Allergy Verified 10/17/25 07:06 Active Medications: Current Medications Sodium Chloride (Ns) 1,000 mls @ 999 mls/hr IV .Q1H1M YASIR Stop: 10/17/25 10:30 Last Admin: 10/17/25 09:23 Dose: 999 mls/hr Home Medications ?Medication ?Instructions ?Recorded ?Confirmed ?Last Taken ?Type atorvastatin 10 mg tablet 1 tab PO BEDTIME 09/13/22 10/17/25 10/14/25 History glipizide 2.5 mg tablet, extended 1 tab PO DAILY 09/13/22 10/17/25 10/14/25 History release 24 hr aspirin 81 mg chewable tablet 81 mg PO DAILY 12/14/22 10/17/25 10/14/25 History losartan 25 mg tablet 25 mg PO DAILY 01/03/23 10/17/25 10/14/25 History empagliflozin 25 mg tablet 25 mg PO DAILY 10/17/25 10/17/25 10/14/25 History (Jardiance) Physical Exam Vital Signs and Narrative: Vital Signs: Last Vital Signs Temp 98.2 F 10/17/25 08:08 Pulse 66 10/17/25 08:08 Resp 18 10/17/25 08:08 BP 163/86 H 10/17/25 08:08 Pulse Ox 97 10/17/25 07:02 O2 Del Method Room Air 10/17/25 07:02 BMI result Body Mass Index 31.0 Const: Other: oriented but vague General: cooperative, comfortable, no acute distress, alert and awake Nutritional Appearance: overweight Resp: Effort & Inspection: normal respiratory effort, able to speak in complete sentences, no respiratory distress and no use of accessory muscles Auscultation: clear to auscultation bilaterally Cardio: Rate: regular rate GI: Inspection: No distended Palpation (GI): Soft to palpation Neuro: General: moves all extremities and CN's II-XI intact bilaterally Extrem: General: No pedal edema Psych: Speech and movement: Clear speech present Affect: Blunted affect present Results Labs 10/17/25 07:58 10/17/25 08:29 Labs: Laboratory Results - last 24 hr 10/17/25 10/17/25 07:58 08:29 MCV 88.4 MCH 30.5 MCHC 34.5 RDW 12.1 Plt Count 285 MPV 10.2 Immature Gran % (Auto) 0.2 Neut % (Auto) 74.1 H Lymph % (Auto) 16.8 L Mitchell % (Auto) 6.8 Eos % (Auto) 1.3 Baso % (Auto) 0.8 Lymph # (Auto) 1.5 Mitchell # (Auto) 0.6 Eos # (Auto) 0.1 Baso # (Auto) 0.1 Abs Immat Gran (auto) 0.02 Absolute Neuts (auto) 6.5 Absolute Nucleated RBC 0.000 Nucleated RBC % (auto) 0.0 PT 11.6 INR 0.9 D-Dimer High Sensitivty < 150 Anion Gap 15 Estim Creat Clear Calc 77.6 Estimated GFR > 60 Random Glucose 123 H Calcium 9.5 Magnesium 1.8 Total Bilirubin 0.8 AST 40 H ALT 62 H Alkaline Phosphatase 74 Troponin I High Sens < 2.7 Total Protein 7.7 Albumin 4.3 TSH 3.27 Salicylates < 5.0 L Acetaminophen < 3 Imaging Radiologist's Impressions: Impressions Cervical Spine CT 10/17/25 08:18 IMPRESSION: 1. There is no CT evidence of acute cervical spine fracture or injury. 2. There is mild cervical spondylosis as discussed. Electronically signed by: Dean Hewitt MD 10/17/2025 08:47 AM EST RP Head CT 10/17/25 08:18 IMPRESSION: No acute fracture, bony calvarium. No acute intracranial hemorrhage. Old lacunar infarcts. Small vessel occlusive disease. Atherosclerosis disease, intracranial. Electronically signed by: Juan Denny MD 10/17/2025 08:47 AM EST RP Assessment and Plan (1) Syncope: Status: Acute Plan This is a 55-year-old female with a history of stroke, type 2 diabetes, hypertension, hyperlipidemia, hypothyroidism who presents to the emergency department after recurrent syncopal event Syncope second episode in three days. no seizure like activity noted Both episodes occurred during the shower, possibly vasovagal orthostatic bp negative, trop negative, ddimer negative h/o hypothyroidism, reportedly not taking meds, TSH wnl check echo tele monitoring tox screen pending HTN, uncontrolled possible med non-compliance continue losartan h/o CVA continue statin, ASA T2DM does not check blood sugar, check Hba1c SSI, POCs, ADA diet continue jardiance, hold glipizide h/o hypothyroidism TSh wnl per outpatient primary care notes, not currently on meds. rec outpatient follow up elevated LFTs chronic, likely due to fatty liver dz outpatient follow up dvt ppx - lovenox Quality Stroke Does the patient have a stroke diagnosis?: No VTE Prior VTE?: No VTE Risk Level:: Medical - moderate - high VTE Device Contraindication: N/A - Device Ordered VTE Drug Contraindication: N/A - Med Ordered
--- NOTE | 2025-10-17 10:53 | PHA.MEDREC ---
Addendum entered by Ellyn Duarte RPh 10/17/25 11:49: REVIEWED BY PHARMACIST Original Note: Pharmacy Consult ? Medication Reconciliation Pharmacy has completed the medication reconciliation. Spoke with pt and she confirmed her medications. Pt taking both Jardiance and Glipizide.
--- NOTE | 2025-10-17 12:00 | CA_ITS ---
Transthoracic Echocardiogram Patient (Last, First, Middle): Octavia Jaffe, Gender: Female Date of : 1970 Age: 55 Procedure Date: 10/17/2025 Procedure Type: Transthoracic Echocardiogram Location: [facility] [place] Height: 152.4 cm Weight: 86.18 kg BSA: 1.83 m2 Heart Rate: bpm BP: 169 / 92 mmHg Seo Team Lead: Referring MD: Jeannie RAMIREZ Symptoms: recurrent syncope Study Quality: Adequate ECG Rhythm: Sinus Conclusions: - The left ventricular systolic function is normal. The calculated ejection fraction is 58% by biplane method. - There is mildly increased left ventricular wall thickness. - No obvious valvular pathology seen on this study. Findings Left Ventricle Normal left ventricular cavity size. There is mildly increased left ventricular wall thickness. The left ventricular systolic function is normal. The calculated ejection fraction is 58% by biplane method. There is no evidence of regional wall motion abnormalities. Diastolic function is normal for age. Right Ventricle Normal right ventricular cavity size and systolic function. Atria Both atria are normal in size. Aortic Valve There is a normal trileaflet aortic valve. There is no aortic valve stenosis. There is no aortic valve regurgitation. Mitral Valve The mitral valve appears normal. There is no mitral valve regurgitation. There is no mitral valve stenosis. Pulmonic Valve The pulmonic valve is likely normal. Tricuspid Valve There is trace tricuspid valve regurgitation. There is no evidence of pulmonary hypertension. Great Vessels The asc aorta is normal in size. Venous The inferior vena cava is normal in size and collapses greater than 50% with inspiration. Pericardium/Pleural There is no evidence of pericardial effusion. Prior Study Comparison No prior study available for comparison. Recommendations, Care & Conclusions No obvious valvular pathology seen on this study. Measurements 2D Linear Measurements IVSd: 1.13 0.6-0.9/0.6-1.0 cm LVIDd: 3.79 3.9-5.3/4.2-5.9 cm LVIDd Index: 2.07 2.4-3.2/2.2-3.1 cm/m2 LVIDs: 2.39 2.0-3.6 cm LVPWd: 1.14 0.7-1.1 cm LA Diam: 3.70 2.7-3.8/3.0-4.0 cm LAIDs Index: 2.02 1.5-2.3 cm/m2 LV Mass: 174.83 67-162/88-224 g LV Mass Index: 95.54 43-95/49-115 g/m2 LVOT Diam: 2.00 3.0+(-)1.3 cm 2D Systolic Function EF 4C: 59.90 >55% EF 2C: 57.30 >55% EF BiP: 58.10 >55% Mitral Valve MV Pk E: 0.78 MV PK A: 1.14 MV Decel Time: 183.00 E/A: 0.70 E'Lateral: 9.90 E'Medial: 6.09 E/E' Med: 12.80 E/E' Lat: 7.90 PHT: 54.00 MVA PHT: 4.07 Decel Edmunds: 4.26 Aortic Valve AoV Pk Bob: 1.46 AoV Mn Bob: 0.87 AoV VTI: 0.35 AoV Pk Grad: 9.00 Aov Mn Grad: 4.00 PB Cont.VTI: 2.20 LVOT LVOT Pk Bob: 0.93 LVOT Mn Bob: 0.63 LVOT VTI: 0.24 LVOT Pk Grad: 3.00 LVOT Mn Grad: 2.00 LVOT Diam: 2.00 LVOT Area: 3.14 Diastolic Function MV Pk E: 0.78 MV Pk A: 1.14 E/A: 0.70 E'Medial: 6.09 E/E' Med: 12.80 E' Laterial: 9.90 E/E' Lat: 7.90 Right Ventricle TAPSE (mm): 23.00 TVS' Bob: 10.00 Tricuspid Valve TR Pk Bob: 1.59 TR Pk Grad: 10.00 RA Press: 3.00 RVSP: 13.00 Great Vessels Aorta Ao Asc: 2.90 2.1-3.4 cm Pulmonary Veins Pulm Vein S/D 1.50 Pulmonary Valve PV Pk Bob: 1.02 Peak PV Grad: 4.00 Updated in Other Vendor System with Status of Final Layton Hartman MD electronically signed on 10/17/2025 3:56:22 PM with status of Final
[2025-10-17 12:41] LABS: Glucose, Whole Blood 75 mg/dL (60-115)
[2025-10-17] MEDS: 0.9 % Sodium Chloride Flush 3 ML SYRINGE IVFLUSH (15:23)
[2025-10-17 16:53] LABS: Glucose, Whole Blood 84 mg/dL (60-115)
[2025-10-17 19:05] LABS: Appearance Urine Cloudy; Glucose Urine UA >=1000 mg/dL (Negative); PH 5.5 (5.0-9.0); Specific Gravity - Urine >= 1.030 (1.005-1.025); UMIC TRIGGER UACC YES
[2025-10-17 19:08] LABS: UACC Culture Trigger YES
[2025-10-17 19:16] LABS: Cannabinoid Screen Urine POSITIVE (Not Detect)
[2025-10-17 21:31] LABS: Glucose, Whole Blood 90 mg/dL (60-115)
--- NOTE | 2025-10-17 22:47 | PC.NURSE ---
pt self removed IV to LAC. new 20g IV placed to L forearm.
[2025-10-18 00:33] VITALS: BP 143/75; PULSE 72; RESP 15; TEMP 36.6; O2SAT 95
[2025-10-18 02:04] VITALS: BMI 32.3
[2025-10-18 02:35] VITALS: BP 170/90; PULSE 65; RESP 18; TEMP 36.7; O2SAT 95
[2025-10-18 08:00] VITALS: BP 179/81; PULSE 64; RESP 18; TEMP 36.4; O2SAT 95
[2025-10-18 08:16] LABS: Glucose, Whole Blood 81 mg/dL (60-115)
[2025-10-18] MEDS: 0.9 % Sodium Chloride Flush 3 ML SYRINGE IVFLUSH ×2 (08:45→21:10)
--- NOTE | 2025-10-18 09:29 | P.CONCA_ITS ---
History of Present Illness History of Present Illness Date of Service: 10/18/25 Chief complaint: Syncope Narrative: This is a cardiology consultation regarding syncope. 55-year-old female with a history of diabetes, hypertension, dyslipidemia, stroke presenting to ER after syncopal event. She was seen initially for similar presentation few days back. Suspected to have a syncopal episode in the bathroom but there was no seizure activity but per H and P, unconscious for a few sec. Then she was brought to the ER and monitored for several hours. Orthostatics negative and other testing was unremarkable and she was discharged home. Then she returns back with a another episode. She again went into the shower and had one further episode with reported and consciousness for a few minutes. No seizure activity or bowel or bladder dysfunction. No chest pains extra. No previous cardiac history. Again it seems orthostatic blood pressures were checked and they were negative. She was admitted for observation. Currently, main complaint is just fatigue. No other cardiac type symptoms. Review of Systems 2 Review of Systems: Yes all other systems are reviewed and are negative Constitutional: Constitutional: Reports as per HPI and Reports no additional constitutional complaints Eyes: Eyes: Reports as per HPI and Denies no additional eye complaints ENT: Denies system reviewed and no additional complaints, except as documented and Reports as per HPI Cardiovascular: Cardiovascular: Reports as per HPI, Reports no additional cardiovascular complaints, Denies acrocyanosis, Denies cool extremities, Denies chest pain, Reports syncope, Denies leg edema, Denies lightheadedness, Denies palpitations and Denies dyspnea Respiratory: Respiratory: Reports as per HPI, Denies no additional respiratory complaints and Denies dyspnea Gastrointestinal: Gastrointestinal: Reports as per HPI and Denies no additional gastrointestinal complaints Genitourinary: Genitourinary: Reports as per HPI Musculoskeletal: Musculoskeletal: Reports no additional musculoskeletal complaints and Reports as per HPI Integumentary/Breasts: Skin/Breast: Reports system reviewed and no additional complaints, except as docu Neurologic: Reports system reviewed and no additional complaints, except as documented, Reports as per HPI and Reports syncope Psychiatric: Psychiatric: Reports no additional psychiatric complaints and Reports as per HPI Endocrine: Endocrine: Reports no additional endocrine complaints, Reports as per HPI and Denies palpitations Hematologic/Lymphatic: Hematologic/Lymphatic: Reports no additional hematologic/lymphatic complaints and Reports as per HPI Allergic/Immunologic: Allergic/Immunologic: Reports no additional allergic/immunologic complaints and Reports as per HPI [facility] Past Medical History Medical History (Updated 10/18/25 @ 09:32 by Layton Hartman MD) T2DM (type 2 diabetes mellitus) HTN (hypertension) CVA (cerebral vascular accident) Family History Family History Father Alcoholic cirrhosis of liver Mother Pancreatic cancer Surgical History Surgical History History of cholecystectomy H/O: Social History Social History Household Members: Spouse and Children Housing: House Do you presently have visiting nurse or other home services: No Alcohol intake: current Alcohol intake frequency: a few times a month Patient Tobacco Use Status: Never used Tobacco Second Hand Smoke Exposure: No service: No Current occupational status: employed Meds Allergies Allergy/AdvReac Type Severity Reaction Status Date / Time No Known Allergies Allergy Verified 10/17/25 07:06 Active Medications: Current Medications Acetaminophen (Acetaminophen 325 Mg Tablet) 650 mg PO Q6H PRN PRN Reason: Pain, Mild 1-3,fever,headache Aspirin (Aspirin 81 Mg Tab.Chew) 81 mg PO DAILY [facility] Last Admin: 10/18/25 08:41 Dose: 81 mg Atorvastatin Calcium (Atorvastatin Calcium 10 Mg Tablet) 10 mg PO BEDTIME [facility] Last Admin: 10/17/25 21:24 Dose: 10 mg Calcium Carbonate (Calcium Carbonate 750 Mg Tab.Chew) 750 mg PO Q4H PRN PRN Reason: Heartburn Dextrose (Dextrose 50 % 25 Gm/50 Ml Syringe) 25 gm IVPUSH Q15M PRN; Protocol PRN Reason: per Hypoglycemia Standing Ord. Empagliflozin (Empagliflozin 25 Mg Tablet) 25 mg PO DAILY [facility] Last Admin: 10/18/25 08:41 Dose: 25 mg Enoxaparin Sodium (Enoxaparin Sodium 40 Mg/0.4 Ml Syringe) 40 mg SUBCUT Q24H [facility] Last Admin: 10/18/25 08:40 Dose: 40 mg Glucose (Glucose Gel 15 Gm Gel..Gram.) 15 gm PO Q15M PRN; Protocol PRN Reason: per Hypoglycemia Standing Ord. Insulin Human Lispro (Insulin Lispro 100 Unit/Ml 3 Ml Vial) 0 unit SUBCUT QIDACHS [facility]; Protocol Last Admin: 10/18/25 08:11 Dose: Not Given Losartan Potassium (Losartan Potassium 50 Mg Tablet) 50 mg PO DAILY [facility]; Protocol Last Admin: 10/18/25 08:41 Dose: 50 mg Magnesium Hydroxide (Milk Of Magnesia 30 Ml Oral.Susp) 30 ml PO DAILY PRN PRN Reason: Constipation Melatonin (Melatonin 3 Mg Tablet) 6 mg PO BEDTIME PRN PRN Reason: Insomnia Ondansetron HCl (Ondansetron Hcl 4 Mg/2 Ml Vial) 4 mg IVPUSH Q8H PRN PRN Reason: Nausea and Vomiting Sodium Chloride (0.9 % Sodium Chloride Flush 3 Ml Syringe) 3 ml IVFLUSH QSHIFT [facility] Last Admin: 10/18/25 08:45 Dose: 3 ml Home Medications ?Medication ?Instructions ?Recorded ?Confirmed ?Last Taken ?Type aspirin 81 mg chewable tablet 81 mg PO DAILY 12/14/22 10/17/25 10/14/25 History atorvastatin 20 mg tablet 20 mg PO BEDTIME 10/17/25 Unknown History empagliflozin 25 mg tablet 25 mg PO DAILY 10/17/2510/14/25 History (Jardiance) glipizide 5 mg tablet 10 mg PO BIDAC 10/17/2509/28 Unknown History losartan 50 mg tablet 50 mg PO DAILY 10/17/2509/28 Unknown History Physical Exam 2 Vital Signs: Vital Signs: Last Vital Signs Temp 97.5 F 10/18/25 08:00 Pulse 64 10/18/25 08:00 Resp 18 10/18/25 08:00 BP 179/81 H 10/18/25 08:00 Pulse Ox 95 10/18/25 08:00 O2 Del Method Room Air 10/18/25 08:00 BMI result Body Mass Index 32.3 Const: General: comfortable and no acute distress O rientation/consciousness: patient oriented x3 HEENT: Other: Unremarkable Head: Yes normal to inspection Neck: Neck: Yes normal visual inspection Chest: Chest palpation & inspection: normal inspection of the chest Resp: Auscultation: clear to auscultation bilaterally Cardio: Palpation: normal PMI Heart sounds: S1 normal heart sound present, S2 normal heart sound present, no gallops, no murmurs and no rubs GI: Palpation (GI): Soft to palpation Back/Spine/Pelvis: Other: unremarkable Skin: General skin exam: no rashes or lesions noted Neuro: General: patient oriented x3 Extrem: General: Yes normal to inspection Psych: Mental Status: mental status grossly normal Objective Labs and Meds 10/17/25 07:58 10/17/25 08:29 Lab results: Laboratory Results - last 24 hr 10/17/25 10/17/25 10/17/25 08:29 12:32 16:47 POC Glucose 75 84 Estimat Average Glucose 214 Hemoglobin A1c % 9.1 H TSH 3.27 Free T3 3.1 Urine Color Urine Appearance Urine pH Ur Specific [place] Urine Protein Urine Glucose (UA) Urine Ketones Urine Blood Urine Nitrite Ur Leukocyte Esterase Urine RBC Urine WBC Ur Squamous Epith Cells Urine Bacteria Hyaline Casts Urine Opiates Screen Ur Buprenorphine Scrn Ur Oxycodone Screen Urine Methadone Screen Urine Fentanyl Screen Ur Barbiturates Screen Ur Phencyclidine Scrn Ur Amphetamines Screen U Benzodiazepines Scrn Urine Cocaine Screen U Marijuana (THC) Screen 10/17/25 10/17/25 10/18/25 18:55 21:27 08:10 POC Glucose 90 81 Estimat Average Glucose Hemoglobin A1c % TSH Free T3 Urine Color Yellow Urine Appearance Cloudy Urine pH 5.5 Ur Specific [place] >= 1.030 H Urine Protein 30 (1+) H Urine Glucose (UA) >=1000 H Urine Ketones 80 Urine Blood Trace H Urine Nitrite Negative Ur Leukocyte Esterase Moderate (2+) H Urine RBC 0-2 Urine WBC >50 H Ur Squamous Epith Cells 11-20 Urine Bacteria 4+ Hyaline Casts 3-5 Urine Opiates Screen Not Detected Ur Buprenorphine Scrn Not Detected Ur Oxycodone Screen Not Detected Urine Methadone Screen Not Detected Urine Fentanyl Screen Not Detected Ur Barbiturates Screen Not Detected Ur Phencyclidine Scrn Not Detected Ur Amphetamines Screen Not Detected U Benzodiazepines Scrn Not Detected Urine Cocaine Screen Not Detected U Marijuana (THC) Screen POSITIVE H ECG Interpretation: EKG with underlying sinus rhythm at 62/Min; no ischemic changes; normal IA and corrected QT. Assessment and Plan (1) Syncope: Status: Acute (2) HTN (hypertension): Status: Acute Plan 2 stated episodes off syncope but no clear cardiovascular findings to correlate with. Reportedly, orthostatics were negative. Blood pressure is rather on the higher side. Patient thinks she has not been very compliant with her medications. Baseline EKGs unremarkable on telemetry does not show anything of concern. Multiple sets of high sensitivity troponins are normal. Echocardiogram with preserved LVEF and mild right ventricular hypertrophy likely from hypertension. No significant valvular findings. Urinalysis is abnormal. Overall, no clear cardiac etiology to explain her syncopal episodes at this time. For high blood pressure, listed to be on losartan 50 mg daily. May need up titration as well as additional medications like adding amlodipine/diuretic. Diabetes also poorly controlled with hemoglobin A1c of 9.1%. This could be related to noncompliance. To review entry the urinalysis if indeed she has UTI causing her syncope and fatigue. Discussed with the hospitalist. Procedures Date of Service Date of Service: 10/18/25
--- NOTE | 2025-10-18 10:55 | HO.PM.IMPN ---
Subjective Subjective Date of Service: 10/18/25 Interval History: Patient seen examined at bedside this morning with at bedside, per , patient had episode of syncope, lasted about 10 minutes, after patient woke up with no recollection of events. Per , patient has been having episodes of mental fogginess . UA showing signs of possible UTI. Review of Systems Review of Systems: Yes all other systems are reviewed and are negative Physical Exam Exam: Exam: General: AxOx2, flat affect Head: AT/NC ENT: Moist mucous membranes Neck: supple CVS; RRR, S1 S2 normal Lungs: Clear bilateral breath sounds, no wheezes or crackles Abd: Soft non tender, non distended Ext: No edema and no calf tenderness MSK: moving all 4 limbs Skin: No cyanosis or edema Psych: Cooperative with exam Neurology: no focal deficit Vital Signs: Vital Signs: Last Vital Signs Temp 97.5 F 10/18/25 08:00 Pulse 64 10/18/25 08:00 Resp 18 10/18/25 08:00 BP 179/81 H 10/18/25 08:00 Pulse Ox 95 10/18/25 08:00 O2 Del Method Room Air 10/18/25 08:00 BMI result Body Mass Index 32.3 Objective Data Active Medications Acetaminophen (Acetaminophen 325 Mg Tablet) 650 mg PO Q6H PRN PRN Reason: Pain, Mild 1-3,fever,headache Amlodipine Besylate (Amlodipine Besylate 5 Mg Tablet) 5 mg PO DAILY [facility]; Protocol Aspirin (Aspirin 81 Mg Tab.Chew) 81 mg PO DAILY [facility] Last Admin: 10/18/25 08:41 Dose: 81 mg Documented By: LUDA Atorvastatin Calcium (Atorvastatin Calcium 20 Mg Tablet) 20 mg PO BEDTIME [facility] Calcium Carbonate (Calcium Carbonate 750 Mg Tab.Chew) 750 mg PO Q4H PRN PRN Reason: Heartburn Dextrose (Dextrose 50 % 25 Gm/50 Ml Syringe) 25 gm IVPUSH Q15M PRN; Protocol PRN Reason: per Hypoglycemia Standing Ord. Enoxaparin Sodium (Enoxaparin Sodium 40 Mg/0.4 Ml Syringe) 40 mg SUBCUT Q24H [facility] Last Admin: 10/18/25 08:40 Dose: 40 mg Documented By: LUDA Glucose (Glucose Gel 15 Gm Gel..Gram.) 15 gm PO Q15M PRN; Protocol PRN Reason: per Hypoglycemia Standing Ord. Ceftriaxone Sodium 1 gm/ (Sodium Chloride) 50 mls @ 100 mls/hr IV Q24H [facility] Insulin Human Lispro (Insulin Lispro 100 Unit/Ml 3 Ml Vial) 0 unit SUBCUT QIDACHS [facility]; Protocol Last Admin: 10/18/25 08:11 Dose: Not Given Documented By: LUDA Non-Admin Reason: No Insulin Coverage Losartan Potassium (Losartan Potassium 50 Mg Tablet) 50 mg PO DAILY [facility]; Protocol Last Admin: 10/18/25 08:41 Dose: 50 mg Documented By: LUDA Magnesium Hydroxide (Milk Of Magnesia 30 Ml Oral.Susp) 30 ml PO DAILY PRN PRN Reason: Constipation Melatonin (Melatonin 3 Mg Tablet) 6 mg PO BEDTIME PRN PRN Reason: Insomnia Ondansetron HCl (Ondansetron Hcl 4 Mg/2 Ml Vial) 4 mg IVPUSH Q8H PRN PRN Reason: Nausea and Vomiting Sodium Chloride (0.9 % Sodium Chloride Flush 3 Ml Syringe) [facility] Admin: 10/18/25 08:45 Dose: 3 ml Documented By: LUDA Labs 10/17/25 07:58 10/17/25 08:29 Labs: Laboratory Results - last 24 hr 10/17/25 10/17/25 10/17/25 08:29 12:32 16:47 POC Glucose 75 84 Estimat Average Glucose 214 Hemoglobin A1c % 9.1 H Free T3 3.1 Urine Color Urine Appearance Urine pH Ur Specific [place] Urine Protein Urine Glucose (UA) Urine Ketones Urine Blood Urine Nitrite Ur Leukocyte Esterase Urine RBC Urine WBC Ur Squamous Epith Cells Urine Bacteria Hyaline Casts Urine Opiates Screen Ur Buprenorphine Scrn Ur Oxycodone Screen Urine Methadone Screen Urine Fentanyl Screen Ur Barbiturates Screen Ur Phencyclidine Scrn Ur Amphetamines Screen U Benzodiazepines Scrn Urine Cocaine Screen U Marijuana (THC) Screen 10/17/25 10/17/25 10/18/25 18:55 21:27 08:10 POC Glucose 90 81 Estimat Average Glucose Hemoglobin A1c % Free T3 Urine Color Yellow Urine Appearance Cloudy Urine pH 5.5 Ur Specific [place] >= 1.030 H Urine Protein 30 (1+) H Urine Glucose (UA) >=1000 H Urine Ketones 80 Urine Blood Trace H Urine Nitrite Negative Ur Leukocyte Esterase Moderate (2+) H Urine RBC 0-2 Urine WBC >50 H Ur Squamous Epith Cells 11-20 Urine Bacteria 4+ Hyaline Casts 3-5 Urine Opiates Screen Not Detected Ur Buprenorphine Scrn Not Detected Ur Oxycodone Screen Not Detected Urine Methadone Screen Not Detected Urine Fentanyl Screen Not Detected Ur Barbiturates Screen Not Detected Ur Phencyclidine Scrn Not Detected Ur Amphetamines Screen Not Detected U Benzodiazepines Scrn Not Detected Urine Cocaine Screen Not Detected U Marijuana (THC) Screen POSITIVE H Assessment and Plan (1) HTN (hypertension): Status: Acute (2) Syncope: Status: Acute Plan 55-year-old female with a history of stroke, type 2 diabetes, hypertension, hyperlipidemia, hypothyroidism who presents to the emergency department after recurrent syncopal event Syncope, suspect vasovagal orthostatic bp negative, trop negative, ddimer negative h/o hypothyroidism, reportedly not taking meds, TSH wnl TTE with EF of 58%, with increased left ventricular wall thickness, no diastolic or systolic dysfunction tele monitoring UDS positive for marijuana Cardiology and neurology consulted UTI -UA with moderate leukocyte esterase, hyaline casts, await cultures -will initiate ceftriaxone 1gr, will hold of of SGLT-2 inhibitor at this time in the setting uf UTI HTN, uncontrolled Will increase losartan to 50mg, will also initiate amlodipine 5mg given elevated BPs Prior history of CVA continue statin, ASA T2DM, chronic, uncontrolled a1c on 10/17 9.1 SSI, POCs, ADA diet hold jardiance and glipizide h/o hypothyroidism TSh wnl per outpatient primary care notes, not currently on meds. rec outpatient follow up elevated LFTs chronic, likely due to fatty liver dz outpatient follow up dvt ppx - lovenox Total time managing care of this patient today: 55 minutes. Quality Stroke Does the patient have a stroke diagnosis?: No VTE Prior VTE?: No VTE Risk Level:: Medical - moderate - high VTE Device Contraindication: N/A - Device Ordered VTE Drug Contraindication: N/A - Med Ordered
--- NOTE | 2025-10-18 11:08 | PM.NEUROCN ---
History of Present Illness Data of Consult Service Date: 10/18/25 Primary Care Provider: Tita Giordano MD [facility] Reason for consult: Syncope 55 year old female with history of stroke, DM, HTN, HLD who presents to the emergency department after syncopal event. She was seen in the ED on October 14 after similar episode. She was in her usual state of health, her heard a large crash and found her outside the top on her back looking up, there was no seizure activity reported and she was reportedly unconscious for a few sec. She remember feeling lightheaded before the event. stated that she was unconscious or unresponsive for about 10 minutes or few minutes. She was not shaking in he could not wake her up. There was no incontinence. Her eyes were closed. She had no recollection of these events. Review of Systems Review of Systems: General: No change in personality or loss of weight Psychiatric: Denies any stress or significant psychological issues Neurological: Complain of feeling lightheaded and then passing out Cardiovascular: No shortness of breath or palpitation Respiratory: No shortness of breath or cough GI: No nausea vomiting or diarrhea HEENT: No double vision or loss of vision Social: Denies any drug or significant alcohol use PMF Past Medical History Medical History (Updated 10/18/25 @ 11:12 by Ilya Hankins MD) T2DM (type 2 diabetes mellitus) HTN (hypertension) CVA (cerebral vascular accident) Family History Family History Father Alcoholic cirrhosis of liver Mother Pancreatic cancer Surgical History Surgical History History of cholecystectomy H/O: Social History Social History Household Members: Spouse and Children Housing: House Do you presently have visiting nurse or other home services: No Alcohol intake: current Alcohol intake frequency: a few times a month Patient Tobacco Use Status: Never used Tobacco Second Hand Smoke Exposure: No service: No Current occupational status: employed Meds Allergies Allergy/AdvReac Type Severity Reaction Status Date / Time No Known Allergies Allergy Verified 10/17/25 07:06 Active Medications: Current Medications Acetaminophen (Acetaminophen 325 Mg Tablet) 650 mg PO Q6H PRN PRN Reason: Pain, Mild 1-3,fever,headache Amlodipine Besylate (Amlodipine Besylate 5 Mg Tablet) 5 mg PO DAILY [facility]; Protocol Aspirin (Aspirin 81 Mg Tab.Chew) 81 mg PO DAILY [facility] Last Admin: 10/18/25 08:41 Dose: 81 mg Atorvastatin Calcium (Atorvastatin Calcium 20 Mg Tablet) 20 mg PO BEDTIME [facility] Calcium Carbonate (Calcium Carbonate 750 Mg Tab.Chew) 750 mg PO Q4H PRN PRN Reason: Heartburn Dextrose (Dextrose 50 % 25 Gm/50 Ml Syringe) 25 gm IVPUSH Q15M PRN; Protocol PRN Reason: per Hypoglycemia Standing Ord. Enoxaparin Sodium (Enoxaparin Sodium 40 Mg/0.4 Ml Syringe) 40 mg SUBCUT Q24H [facility] Last Admin: 10/18/25 08:40 Dose: 40 mg Glucose (Glucose Gel 15 Gm Gel..Gram.) 15 gm PO Q15M PRN; Protocol PRN Reason: per Hypoglycemia Standing Ord. Ceftriaxone Sodium 1 gm/ (Sodium Chloride) 50 mls @ 100 mls/hr IV Q24H [facility] Insulin Glargine (Insulin Glargine,Hum.Rec.Anlog 100 Unit/Ml 10 Ml Vial) 10 unit SUBCUT BEDTIME [facility] Insulin Human Lispro (Insulin Lispro 100 Unit/Ml 3 Ml Vial) 0 unit SUBCUT QIDACHS [facility]; Protocol Last Admin: 10/18/25 08:11 Dose: Not Given Losartan Potassium (Losartan Potassium 50 Mg Tablet) 50 mg PO DAILY [facility]; Protocol Last Admin: 10/18/25 08:41 Dose: 50 mg Magnesium Hydroxide (Milk Of Magnesia 30 Ml Oral.Susp) 30 ml PO DAILY PRN PRN Reason: Constipation Melatonin (Melatonin 3 Mg Tablet) 6 mg PO BEDTIME PRN PRN Reason: Insomnia Ondansetron HCl (Ondansetron Hcl 4 Mg/2 Ml Vial) 4 mg IVPUSH Q8H PRN PRN Reason: Nausea and Vomiting Sodium Chloride (0.9 % Sodium Chloride Flush 3 Ml Syringe) 3 ml IVFLUSH QSHIFT [facility] Last Admin: 10/18/25 08:45 Dose: 3 ml Home Medications ?Medication ?Instructions ?Recorded ?Confirmed ?Last Taken ?Type aspirin 81 mg chewable tablet 81 mg PO DAILY 12/14/22 10/17/25 10/14/25 History atorvastatin 20 mg tablet 20 mg PO BEDTIME 10/17/25 10/17/25 Unknown History empagliflozin 25 mg tablet 25 mg PO DAILY 10/17/25 10/17/25 10/14/25 History (Jardiance) glipizide 5 mg tablet 10 mg PO BIDAC 10/17/25 10/17/25 Unknown History losartan 50 mg tablet 50 mg PO DAILY 10/17/25 10/17/25 Unknown History Physical Exam Vital Signs: Vital Signs: Last Vital Signs Temp 97.5 F 10/18/25 08:00 Pulse 64 10/18/25 08:00 Resp 18 10/18/25 08:00 BP 179/81 H 10/18/25 08:00 Pulse Ox 95 10/18/25 08:00 O2 Del Method Room Air 10/18/25 08:00 BMI result Body Mass Index 32.3 Neuro: Other: Mental Status: Alert and oriented to person, place, and time. Normal attention. Normal spontaneous speech, fluency, and comprehension. No obvious issues with mood and memory. Affect is appropriate. Cranial Nerves: CN II: Visual poe full to confrontation, visual acuity intact. CN III, IV, : Pupils equal, round, reactive to light and accommodation. Extraocular movements are normal. CN V: Facial sensation is normal. CN VII: Facial movements symmetrical. CN VIII: Hearing intact to bedside conversation is normal. CN IX, X: Palate elevates symmetrically. CN XI: Shoulder shrug and head turn symmetrical. CN XII: Tongue midline without atrophy or fasciculations. Motor: Bulk and tone normal in all extremities. No significant muscle weakness in arms and legs. No drift. Reflexes: Deep tendon reflexes 2+ and symmetric. Plantar response down-going bilaterally. Coordination: [id number] and [id number]-gg-[id number] testing normal. No dysmetria. Extrapyramidal: Full facial expressions and blinking. No rigidity. Movements are appropriate with no tremor or abnormality. Speech: Normal; no dysarthria or tremor. Results Labs 10/17/25 07:58 10/17/25 08:29 Labs: Urine 10/17/25 Range/Units 18:55 Urine Color Yellow Urine Appearance Cloudy Urine pH 5.5 (5.0-9.0) Ur Specific [place] >= 1.030 H (1.005-1.025) Urine Protein 30 (1+) H (Neg-Trace) mg/dL Urine Glucose (UA) >=1000 H (Negative) mg/dL CT HEAD WITHOUT CONTRAST CLINICAL INFORMATION: fall head strike COMPARISON: September. TECHNIQUE: Contiguous axial imaging was performed from the skull base to vertex without intravenous administration of contrast. This CT examination was performed using dose optimization techniques as appropriate, variously including the following: *Automated exposure control *Adjustment of mA and/or kV according to patient size (this includes techniques or standardized protocols for targeted exams where dose is matched to indication/reason for exam; i.e. extremities or head) *Use of iterative reconstruction technique DLP: 738.84 mGy-cm FINDINGS: No acute cortical disruption in the right ovarian nor the skull base. No acute intracranial hemorrhage, mass effect, midline shift, hydrocephalus or herniation. Lipscomb-white matter differentiation is normal. Old lacunar infarcts in the basal ganglia and frontal dominguez radiata white matter. No increased density within the MCA's. Calcified plaques in the cavernous supracavernous segments both ICAs. Posterior cranial fossa contents demonstrated no acute hemorrhage. Normal position of the cerebellar tonsils. Sellar/suprasellar region demonstrated no gross masses. Poor pneumatization of the frontal sinuses. No air-fluid levels in the paranasal sinuses. Tympanic cavities and mastoid air cells are aerated. CT/CT head/brain wo IV con IMPRESSION: No acute fracture, bony calvarium. No acute intracranial hemorrhage. Old lacunar infarcts. Small vessel occlusive disease. Atherosclerosis disease, intracranial. ECG Interpretation: est Reason : falll Blood Pressure : */* mmHG Vent. Rate : 62 BPM Atrial Rate : 62 BPM P-R Int : 128 ms QRS Dur : 80 ms QT Int : 422 ms P-R-T Axes : 42 -3 47 degrees QTcB Int : 428 ms Normal sinus rhythm Normal ECG When compared with ECG of 14-Oct-2025 07:10, Criteria for Septal infarct are no longer Present CT HEAD WITHOUT CONTRAST CLINICAL INFORMATION: fall head strike COMPARISON: September. TECHNIQUE: Contiguous axial imaging was performed from the skull base to vertex without intravenous administration of contrast. This CT examination was performed using dose optimization techniques as appropriate, variously including the following: *Automated exposure control *Adjustment of mA and/or kV according to patient size (this includes techniques or standardized protocols for targeted exams where dose is matched to indication/reason for exam; i.e. extremities or head) *Use of iterative reconstruction technique DLP: 738.84 mGy-cm FINDINGS: No acute cortical disruption in the right ovarian nor the skull base. No acute intracranial hemorrhage, mass effect, midline shift, hydrocephalus or herniation. Lipscomb-white matter differentiation is normal. Old lacunar infarcts in the basal ganglia and frontal dominguez radiata white matter. No increased density within the MCA's. Calcified plaques in the cavernous supracavernous segments both ICAs. Posterior cranial fossa contents demonstrated no acute hemorrhage. Normal position of the cerebellar tonsils. Sellar/suprasellar region demonstrated no gross masses. Poor pneumatization of the frontal sinuses. No air-fluid levels in the paranasal sinuses. Tympanic cavities and mastoid air cells are aerated. CT/CT head/brain wo IV con IMPRESSION: No acute fracture, bony calvarium. No acute intracranial hemorrhage. Old lacunar infarcts. Small vessel occlusive disease. Atherosclerosis disease, intracranial. Assessment and Plan (1) Seizure disorder: Status: Acute 55 years old woman with severely uncontrolled hypertension and multiple chronic microvascular ischemic lesions in basal ganglia and subcortical areas at to episodes suggestive of seizures. She and her were educated about this concept. She was advised to be careful and take appropriate precautions to avoid any accidents. [facility] law about driving was also discussed and she was advised not to drive at this time. I recommend a noncontrast MRI in an EEG, which can be done as an outpatient if it was not possible during weekend. Procedures Date of Service Date of Service: 10/18/25
--- NOTE | 2025-10-18 11:28 | PC.NURSE ---
Pt reports no complaints. Denies dizziness, vision changes, headache, pain. She became tachycardic up to 120 while ambulating in the room.
[2025-10-18 11:54] VITALS: BP 142/76; PULSE 88; RESP 18; TEMP 36.7; O2SAT 98
[2025-10-18 12:09] LABS: Glucose, Whole Blood 142 mg/dL (60-115)
[2025-10-18 15:22] VITALS: BP 174/81; PULSE 73; RESP 16; TEMP 36.9; O2SAT 95
[2025-10-18 15:39] LABS: Glucose, Whole Blood 95 mg/dL (60-115)
[2025-10-18 19:22] VITALS: BP 158/86; PULSE 98; RESP 20; TEMP 36.7; O2SAT 97
[2025-10-18 20:57] LABS: Glucose, Whole Blood 154 mg/dL (60-115)
[2025-10-19] VITALS: BP 155/81; PULSE 82; RESP 18; TEMP 36.7; O2SAT 96
[2025-10-19 03:21] VITALS: BP 126/69; PULSE 65; RESP 18; TEMP 36.5; O2SAT 95
[2025-10-19 07:08] VITALS: BP 161/92; PULSE 70; RESP 18; TEMP 36.3; O2SAT 97
[2025-10-19 07:24] LABS: Glucose, Whole Blood 103 mg/dL (60-115)
[2025-10-19] MEDS: 0.9 % Sodium Chloride Flush 3 ML SYRINGE IVFLUSH (09:08)
--- NOTE | 2025-10-19 10:52 | MHC.CM.PN ---
Addendum entered by Kelsy Penaloza 10/19/25 11:15: PT CLEARED TO DC HOME TODAY WITH NO SERVICES Original Note: PT REPORTS SHE LIVES WITH HER AND IS INDEPENDENT WITH CARE SHE HAS NO SERVICES OR DME DECLINES A HCP PCP: [facility] NOTICE DELIVERED DCP: HOME VIA PRIVATE TRANSPORT
[2025-10-19 11:02] LABS: Glucose, Whole Blood 88 mg/dL (60-115)
--- NOTE | 2025-10-19 11:11 | P.DS_ITS ---
DS: Providers Provider Date of Service: 10/19/25 Date of admission: 10/17/25 09:29 Date of discharge: 10/19/25 Primary care physician: Tita iGordano MD Consults: 10/18/25 09:04 Consult to Cardiology Routine Consulting Provider: [facility] Reason for consultation: syncope Has provider been notified: No Consult to Neurology Routine Consulting Provider: [facility] Reason for consultation: syncope, possibly neurogenic, prior history of CVA Has provider been notified: No DS: Diagnosis Discharge Diagnosis (1) Seizure disorder: Status: Acute (2) H/O: CVA (cerebrovascular accident): Status: Chronic DS: Summary Hospital Course Hospital Course: 55-year-old female with a history of stroke, type 2 diabetes, hypertension, hyperlipidemia, hypothyroidism who presents to the emergency department after recurrent syncopal event. MRI showing chronic remote lacunar infarct in right subinsular cortex and a non restricted diffusion abnormality involving basal ganglion left internal capsule measuring 2.1 x 1.2 cm consistent with a chronic CVA other than 10-15 days. Patient assessed by Neurology, suggested on following outpatient with an EEG for possible seizure disorder. Patient also presenting with elevated blood pressure in's and the 180s. Patient advised to keep a blood pressure log, started on amlodipine 5 mg, continue with losartan. Patient also advised to not drive for at least 6 months. Syncope, to rule out seizure disorder given CVAs orthostatic bp negative, trop negative, dimer negative TTE with EF of 58%, with increased left ventricular wall thickness, no diastolic or systolic dysfunction tele monitoring UDS positive for marijuana follow up with neurology and EEG as outpatient HTN, uncontrolled Continue losartan 50mg and amlodipine 5mg Blood pressure log to be taken to PCP, adjust BP meds CVA will increase atorvastatin to 40mg, ASA for secondary stroke prevention T2DM, chronic, uncontrolled a1c on 10/17 9.1 ADA diet -Will restart jardiance, will need to monitor if patient develops new UTI -Will initiate metformin 500mg qd, slowly uptrate up to maximal dose if able, follow up with PCP as outpatient -Glipizide d/c for risk of hypoglycemia UTI -UA with moderate leukocyte esterase, hyaline casts, contaminated sample -will switch ceftriaxone 1gr to cefuroxime 250mg BID for 5 days. h/o hypothyroidism TSh wnl per outpatient primary care notes, not currently on meds. rec outpatient follow up elevated LFTs chronic, likely due to fatty liver dz outpatient follow up Time Attestation Discharge Coordination Time (in mins): 35 minutes Quality: Safe Use of Opioids Does Pt have an Active Cancer Diagnosis on the Problem List?: No Quality: Stroke Does the patient have a stroke diagnosis?: No Physical Exam Exam: Exam: General: AxOx2, flat affect Head: AT/NC ENT: Moist mucous membranes Neck: supple CVS; RRR, S1 S2 normal Lungs: Clear bilateral breath sounds, no wheezes or crackles Abd: Soft non tender, non distended Ext: No edema and no calf tenderness MSK: moving all 4 limbs Skin: No cyanosis or edema Psych: Cooperative with exam Neurology: no focal deficit Vital Signs: Vital Signs: Last Vital Signs Temp 97.4 F 10/19/25 07:08 Pulse 70 10/19/25 07:08 Resp 18 10/19/25 07:08 BP 161/92 H 10/19/25 07:08 Pulse Ox 97 10/19/25 07:08 O2 Del Method Room Air 10/19/25 07:08 BMI result Body Mass Index 32.3 DS: Data Data Completed and Pending Labs on day of discharge: Laboratory Results - last 24 hr 10/18/25 10/18/25 10/18/25 11:53 15:26 20:50 POC Glucose 142 H 95 154 H 10/19/25 10/19/25 07:06 10:50 POC Glucose 103 88 Discharge Plan Discharge Patient Disposition: Home, Self-Care Discharge Diagnosis: Syncope to rule out stroke Strokes Referrals: Tita Giordano MD [Primary Care Provider, Medical] - 1 Week Ilya Hankins MD [Physician, Neurology] - 1 Week Referral Note: EEG testing Discharge Medications: New amlodipine 5 mg Tablet 5 mg PO DAILY 30 Days Qty: 30 0RF Protocol: Hold for SBP< HOLD for SBP < : 90 metformin 500 mg tablet 500 mg PO DAILY Qty: 30 0RF cefuroxime axetil 250 mg tablet 250 mg PO BID 5 Days Qty: 10 0RF Continued aspirin 81 mg Tablet,Chewable 81 mg PO DAILY Jardiance 25 mg tablet 25 mg PO DAILY losartan 50 mg Tablet 50 mg PO DAILY Changed atorvastatin 20 mg Tablet 40 mg PO BEDTIME 30 Days Qty: 60 0RF Discontinued glipizide 5 mg Tablet 10 mg PO BIDAC Discharge Orders: Discharge Order (Routine); Ordered 10/19/25 Ordered By: Angel Jose Activity on Discharge: As tolerated Stand Alone Forms: Patient Portal Discharge page Print Language: Tamazight Care Plan Goals: EEG as outpatient to rule out seizures, follow up with neurology and primary care provider continue aspirin and increased atorvastatin for secondary stroke prevention continue blood pressure medications and keep a log to bring to primary care provider continue with antibiotic for urinary tract infection Health Concerns: Stroke possible seizures uncontrolled diabetes and hypertension Plan of Treatment: EEG as outpatient losartan increased to 50 mg and initaite amlodipine 5 mg blood pressure log to take to primary care provider Increased atorvastatin to 40mg, check lipid panels as outpatient Initiated metformin, continue jardiance. follow as outpatient Initiated cefuroxime 250mg BID for urinary tract infection, to take for the next 5 days Assessment: 55-year-old female with a history of stroke, type 2 diabetes, hypertension, hyperlipidemia, hypothyroidism who presents to the emergency department after recurrent syncopal event. MRI showing chronic remote lacunar infarct in right subinsular cortex and a non restricted diffusion abnormality involving basal ganglion left internal capsule measuring 2.1 x 1.2 cm consistent with a chronic CVA older than 10-15 days. Suggested on EEG as outpatient to rule out seizures
== END 2025-10-19 11:40 | disposition home or self-care (01) ==
LOC: HO.ED 09:21 → HO.EDOVER 09:29 → HO.IMC 10-18 01:15
PROVIDERS: Physician Assistant; Admitting Provider Physician Assistant Medical; Emergency Provider Emergency Medicine; PCP Internal Medicine; Visit Provider Student in an Organized Health Care Education/Training Program
DX: G40.909 Epilepsy, unspecified, not intractable, without status epilepticus (principal); R55 Syncope and collapse; S09.90XA Unspecified injury of head, initial encounter; W18.30XA Fall on same level, unspecified, initial encounter; Y93.F1 Activity, caregiving, bathing; Y92.002 Bathroom of unspecified non-institutional (private) residence as the place of occurrence of the external cause; I10 Essential (primary) hypertension; M54.2 Cervicalgia; E11.9 Type 2 diabetes mellitus without complications; E78.5 Hyperlipidemia, unspecified; R79.89 Other specified abnormal findings of blood chemistry; E03.9 Hypothyroidism, unspecified; N39.0 Urinary tract infection, site not specified; Z86.73 Personal history of transient ischemic attack (TIA), and cerebral infarction without residual deficits; Z79.82 Long term (current) use of aspirin; Z79.01 Long term (current) use of anticoagulants; Z79.899 Other long term (current) drug therapy
CPT/HCPCS: 36415; 70450; 70551; 72125; 80053; 80143; 80179; 80307; 81001; 82947; 83036; 83735; 84443; 84481; 84484; 85025; 85379; 85610; 87086; 93005; 93306; 96361; 96365; 96366; 96372; 99222; 99285; J0696; J1650

== ENCOUNTER → 2025-10-17 07:20 | Outpatient (BNV) | payer BC, SELFPAY | PROVIDERS: Emergency Provider Emergency Medicine; PCP Internal Medicine; Visit Provider Radiology Diagnostic Radiology | DX: M54.2 Cervicalgia (principal); M47.812 Spondylosis without myelopathy or radiculopathy, cervical region; Z04.3 Encounter for examination and observation following other accident; S09.90XA Unspecified injury of head, initial encounter; I67.82 Cerebral ischemia; I67.2 Cerebral atherosclerosis | CPT/HCPCS: 70450; 72125 ==

== ENCOUNTER 2025-10-17 09:29 | Outpatient (BNV) | payer BC, SELFPAY | END 2025-10-18 17:50 | PROVIDERS: Admitting Provider Physician Assistant Medical; Emergency Provider Emergency Medicine; PCP Internal Medicine; Visit Provider Radiology Diagnostic Radiology | DX: I63.9 Cerebral infarction, unspecified (principal) | CPT/HCPCS: 70551 ==

== ENCOUNTER 2025-10-17 09:29 | Outpatient (BNV) | payer BC, SELFPAY | END 2025-10-17 12:00 | PROVIDERS: Admitting Provider Physician Assistant Medical; Emergency Provider Emergency Medicine; PCP Internal Medicine; Visit Provider Internal Medicine | DX: Z04.3 Encounter for examination and observation following other accident (principal) | CPT/HCPCS: 93010 ==

== ENCOUNTER → 2025-10-17 09:29 | Outpatient (BNV) | payer BC, SELFPAY | PROVIDERS: Admitting Provider Physician Assistant Medical; Emergency Provider Emergency Medicine; PCP Internal Medicine; Visit Provider Physician Assistant Medical | DX: G40.909 Epilepsy, unspecified, not intractable, without status epilepticus (principal); Z86.73 Personal history of transient ischemic attack (TIA), and cerebral infarction without residual deficits | CPT/HCPCS: 99233; 99239; 99253 ==

== ENCOUNTER → 2025-10-17 09:29 | Outpatient (BNV) | payer BC, SELFPAY | PROVIDERS: Admitting Provider Physician Assistant Medical; Emergency Provider Emergency Medicine; PCP Internal Medicine; Visit Provider Internal Medicine | DX: R55 Syncope and collapse (principal); I10 Essential (primary) hypertension | CPT/HCPCS: 99223 ==

== ENCOUNTER → 2025-10-17 09:29 | Outpatient (BNV) | payer BC, SELFPAY | PROVIDERS: Admitting Provider Physician Assistant Medical; Emergency Provider Emergency Medicine; PCP Internal Medicine; Visit Provider Psychiatry & Neurology Neurology | DX: G40.909 Epilepsy, unspecified, not intractable, without status epilepticus (principal) | CPT/HCPCS: 99223 ==

== ENCOUNTER 2025-10-22 09:47 | Outpatient (REF) | payer BC, SELFPAY ==
--- NOTE | 2025-10-22 11:31 | EEG_ITS ---
History: H/O diabetes, htn, CVA- pt had 2 syncopal events 10/24/25 and 10/18/25 both in the shower - pt did not recall the events per notes pt was unresponsive for about 10 minutes in duration- no shaking was noted- pt presently has increased fatigue and having problems with memory and following task- CT showed old lacunar infarcts in the basal ganglia and frontal dominguez radiata white matter Medication:asa, atorvastatin, jardiance, glipizide, losarta Technical Description Photic Stimulation: completed Hyperventilation: omitted- uncontrolled HTN at this time Behavioral State: cooperative and pleasant- pt has delays when asking questions she is aware of this and states she is having a hard time with memory since the last event on 10/18/25 State of Consciousness: awake brief periods of drowsy Skull Defect: no Sedation: no Handedness: Right : Duration: 32 mins 03 secs [employer]el[employer]ator Comments: Last Meal: 10/22/25 7am Time / date of last symptom: 10/18/25 Description: This is a 16 channel EEG with an EKG lead. Patient is reported awake and drowsy during the tracing. Background EEG rhythm is slow alpha to beta range with intermittent left and temporal sharp waves leading to generalize sharp and slow wave complexes. Photic stimulation did not produce any driving. Hyperventilation was not performed. Cardiac lead did not reveal any significant abnormality. Impression: Abnormal EEG suggestive of bitemporal irritability. MTDD
== END 2025-10-22 09:48 | disposition home or self-care (01) ==
LOC: HO.NEURO 09:47
PROVIDERS: PCP Internal Medicine; Visit Provider Psychiatry & Neurology Neurology
DX: G40.909 Epilepsy, unspecified, not intractable, without status epilepticus (principal)
CPT/HCPCS: 95816

== ENCOUNTER → 2025-10-22 11:31 | Outpatient (BNV) | payer BC, SELFPAY | PROVIDERS: PCP Internal Medicine; Visit Provider Psychiatry & Neurology Neurology | DX: G40.909 Epilepsy, unspecified, not intractable, without status epilepticus (principal) | CPT/HCPCS: 95816 ==

== ENCOUNTER 2025-11-06 15:06 | Outpatient (AMB) | payer BC, SELFPAY ==
--- OUTSIDE RECORDS SUMMARY | 2025-11-04 23:59 | XMS_ITS | Continuity of Care Document ---
Author Organization [facility] Crescencio Prince lt Address [address] [place] [address]- Care Team Providers Care Manager Operations Research Name Role Phone Keshia BURGER, Diane Villeda Primary Care Physic alan [id number] Date(s): 10/28/25 - 11/04/25 [facility] Adult [address] [place] [address]- Encounter Diagnosis Inpatient hospitalization within last 30 days(Discharge Diagnosis) - 10/28/25 Attending Physician: Not on Staff, Attending MD Referring Physician: Keshia BURGER, Diane Villeda Encounter Type: Office Visit Allergies, Adverse Reactions, Alerts No Known Allergies Immunizations Given and Recorded Vaccine Date Status Refusal Reason SARS-CoV-2 mRNA ([id number]) vax 12/04/21 Recorded SARS-CoV-2 (COVID-19) Ad26 vaccine 03/06/21 Record ed influenza virus vaccine, inactivated 09/20/20 Ryan rded Medications Amlodipine By Mouth, Daily, 0 Refills, Maintenance, 10/28/25 1:56:00 PM EST, Partial fill upon patient request if the prescription is for a schedule II opioid drug. Start Date: 10/28/25 Status: Ordered Medication Dispense Status: Completed Total Allowed Fills: 1 Fills Dispensed: 0 aspirin 81 mg oral delayed release tablet 81 mg, 1, tablet, By Mouth, Daily, with Food, # 30 tablet, Refills 0, Tot. Refills 0, Maintenance, 06/24/25 9:59:00 AM EDT, Route to Pharmacy Electronically, [facility] #[id number], Partial fill upon patient request if the prescription is for a schedule II opioid drug., 167.64, cm, 06/24/25 9:34 :00 EDT, Height Start Date: 06/24/25 Status: Ordered Medication Dispense Status: Completed Quantity: 30.0 Unit: tablet Total Allowed Fills: 1 Fills Dispensed: 0 Indications: Personal history of transient ischemic attack (TIA), and cerebral infarction without residual deficits; atorvastatin 20 mg oral tablet 1 tablet = 20 mg, By Mouth, Daily, # 90 tablet, 1 Refills, Maintenance, 06/24/25 9:58:00 AM EDT, Tablet, [facility] #[id number], Partial fill upon patient request if the prescription is for a schedule II opioid drug., 167.64, cm, 06/24/25 9:34:00 EDT, Height Start Date: 06/24/25 Status: Ordered Medication Dispense Status: Completed Quantity: 90.0 Unit: tablet Total Allowed Fills: 2 Fills Dispensed: 0 Indications: Hyperlipidemia, unspecified; cefuroxime 250 mg oral tablet 1 tablet = 250 mg, By Mouth, Every 12 hours, 0 Refills, Maintenance, 10/28/25 1:56:00 PM EST, Partial fill upon patient request if the prescription is for a schedule II opioid drug. Start Date: 10/28/25 Status: Ordered Medication Dispense Status: Completed Total Allowed Fills: 1 Fills Dispensed: 0 glipiZIDE 5 mg oral tablet 10 mg, 2, tablet, By Mouth, 2 times a day, # 360 tablet, Refills 0, Tot. Refills 0, Maintenance, 06/24/25 9:58:00 AM EDT, Route to Pharmacy Electronically, [facility] #[id number], Partial fill upon patient request if the prescription is for a schedule II opioid drug., 167.64, cm, 06/24/25 9:34:00 EDT, Height Start Date: 06/24/25 Status: Ordered Medication Dispense Status: Completed Quantity: 360.0 Unit: tablet Total Allowed Fills: 1 Fills Dispensed: 0 Indications: Type 2 diabetes mellitus without complications; Jardiance 25 mg oral tablet 1 tablet = 25 mg, By Mouth, Daily in AM, Increasing dose, # 30 tablet, 5 Refills, Maintenance, 08/18/25 1:55:00 PM EDT, Tablet, [facility] #[id number], Partial fill upon patient request if the prescription is for a schedule II opioid drug., 167.64, cm, 08/18/25 13:40:00 EDT, Height Start Date: 08/18/25 Status: Ordered Medication Dispense Status: Completed Quantity: 30.0 Unit: tablet Total Allowed Fills: 6 Fills Dispensed: 0 levETIRAcetam 500 mg oral tablet 1 tablet = 500 mg, By Mouth, 2 times a day, 0 Refills, Maintenance, 10/28/25 1:58:00 PM EST, Partialfill upon patient request if the prescription is for a schedule II opioid drug. Start Date: 10/28/25 Status: Ordered Medication Dispense Status: Completed Total Allowed Fills: 1 Fills Dispensed: 0 losartan 50 mg oral tablet 1 tablet, By Mouth, Daily, # 90 tablet, 0 Refills, Maintenance, 07/31/25 12:45:00 PM EDT, [facility] #[id number], 167.64, cm, 06/30/25 13:44:00 EDT, Height Start Date: 07/31/25 Status: Ordered Medication Dispense Status: Completed Quantity: 90.0 Unit: tablet Total Allowed Fills: 1 Fills Dispensed: 0 Metformin By Mouth, 0 Refills, Maintenance, 10/28/25 1:56:00 PM EST, Partial fill upon patient request if the prescription is for a schedule II opioid drug. Start Date: 10/28/25 Status: Ordered Medication Dispense Status: Completed Total Allowed Fills: 1 Fills Dispensed: 0 Problem List Condition Confirmation Course Effective Dates Status H ealth Status Informant Hypothyroidism (acquired) Confirmed Active Antithrombin III deficiency Confirmed Active Elevated hematocrit Confirmed Active Hx R lacunar infact - 2020 Confirmed Active Hypertension Confirmed Active Mixed hyperlipidemia Confirmed Active Obese class I Confirmed Active Type 2 diabetes mellitus Confirmed Active Diagnosis Diagnosis Type Effective Dates Health Status Clinical Service Informant Inpatient hospitalization within last 30 days Discharge Diagnosis 10/28/25 Vital Signs Most recent to oldest [Reference Range]: 1 Height 167.64 cm (10/28/25 1:58 PM) Weight 88.7 kg (10/28/25 1:58 PM) Oxygen Saturation [94-100 %] 98 % (10/28/25 1:58 PM) Pulse Rate [55-90 bpm] 73 bpm (10/28/25 1:58 PM) Body Mass Index [18.5-24.99 kg/m2] 31.56 kg/m2 *H* (10/28/25 1:58 PM) Blood Pressure [90-138/55-84 mm Hg] 132/ 84mm Hg (10/28/25 1:58 PM) Respiratory Rate [16-30 br/min] 20 br/mi n (10/28/25 1:58 PM) Mode of Delivery (Oxygen) Room air (10/28/25 1:58 PM) Blood pressure sites Arm, left (10/28/25 1:58 PM) Temperature Route Oral (10/28/25 1:58 PM) Weight Obtained Via Standing scale (10/28/25 1:58 PM) Social History Social History Type Response Sexual Gender identity: Pavel ntifies as female. Smoking Status Never (less than 100 in lifetime) entered on: 07/05/24 Sex Sex Representation Female (finding) Patient Care team information Care Team Personnel Name: Keshia BURGER, Diane Villeda Position: [facility] PCO Associate Professional Member Role: PCP Address: [address] [place] [address] Adult Medicine [place], [place] [address] Telecom: Care Team Related Persons Name: LATOYA HARRY Insurance Providers Guarantor name: JT BARRIENTOSA Health Plan Information #: 1 Payer: [facility] Payer Identifier: JEEVAN Member Number: [id number] Group Number: [id number] Subscriber Identifier: [id number] Relationship to Subscriber: self Coverage Type: NA Coverage Verification Date: NA Telecom: NA Address:
--- NOTE | 2025-11-06 15:10 | MHC.OFFVIS ---
Intake Visit Reasons: ED follow Up Allergies No Known Allergies Allergy (Verified 10/17/25 07:06) HPI Comments Details: 55 year old female who was seen in [facility] in September of 2025 with set of symptoms suggestive of complex partial seizure disorder and was diagnosed with seizure disorder and also with a subacute left basal ganglia infarct in settings of uncontrolled blood pressure. She is presenting for a follow-up visit after a recent stroke. She has a history of a stroke on the left side of the brain and reports ongoing confusion, which she describes as persistent rather than episodic. She also had a prior stroke in 2020, which was initially misdiagnosed as an ear infection, and presented with memory loss and exhaustion. A brain MRI confirms evidence of both a recent and an old stroke. The patient has a history of significant hypertension, with blood pressure readings previously running as high as 180-200 mmHg plus. She has been prescribed amlodipine but acknowledges some forgetfulness with taking her medication, which is now being managed with a new routine and assistance. She has purchased a blood pressure cuff for more consistent home monitoring. Past medical history is negative for carotid surgery, blood clots, miscarriages, or heart disease. A carotid ultrasound in 2021 showed some non-significant issues. She is a non-smoker and reports that she no longer drinks alcohol. Recent lab work revealed polycythemia, described as having too many red blood cells, with hematocrit levels of 49 and 50 on two occasions. Her liver enzymes were noted to be borderline. Cholesterol levels have not been checked recently, with the last test being two years ago. [facility] Medical History (Updated 11/06/25 @ 15:43 by Ilya Hankins MD) Polycythemia T2DM (type 2 diabetes mellitus) HTN (hypertension) CVA (cerebral vascular accident) Surgical History History of cholecystectomy H/O: Family History Father Alcoholic cirrhosis of liver Mother Pancreatic cancer Social History Household Members: Spouse and Children Housing: House Do you presently have visiting nurse or other home services: No Alcohol intake: current Alcohol intake frequency: a few times a month Patient Tobacco Use Status: Never used Tobacco Second Hand Smoke Exposure: No service: No Current occupational status: employed Review of Systems Narrative - Constitutional: Reports exhaustion. - Neurological: Reports persistent confusion and memory loss. - Psychiatric: Denies stress or feeling depressed. Physical Exam Neuro Other: Mental Status: Alert and oriented to person, place, and time. Normal attention. Normal spontaneous speech, fluency, and comprehension. Mini-mental status score is 26. Affect is flat. Cranial Nerves: CN II: Visual poe full to confrontation, visual acuity intact. CN III, IV, : Pupils equal, round, reactive to light and accommodation. Extraocular movements are normal. CN V: Facial sensation is normal. CN VII: Facial movements symmetrical. CN VIII: Hearing intact to bedside conversation is normal. CN IX, X: Palate elevates symmetrically. CN XI: Shoulder shrug and head turn symmetrical. CN XII: Tongue midline without atrophy or fasciculations. Motor: Bulk and tone normal in all extremities. No significant muscle weakness in arms and legs. No drift. Reflexes: Deep tendon reflexes 2+ and symmetric. Plantar response down-going bilaterally. Coordination: Ndmzwg-tu-wvej is okay. Gait and Station: No obvious gait abnormality. No ataxia or instability. Extrapyramidal: Full facial expressions and blinking. No rigidity. Movements are appropriate with no tremor or abnormality. Speech: Normal; no dysarthria or tremor. Results Reviewed Results Reviewed: [place] [address] CT Scan Report Signed Patient: Octavia Jaffe MR#: [id number] : 1970 Acct:[id number] Age/Sex: 55 / F ADM Date: 10/17/25 Loc: HO.ED Attending Dr: Ordering Physician: Joe Dean Date of Service: 10/17/25 Procedure(s): CT head/brain wo IV con Accession Number(s): [id number] cc: BETI SWEET MD; Joe Dean~ Report Number: [id number]: Total DLP = 746.00 mGy-cm Reason for Exam: fall head strike EXAMINATION: CT HEAD WITHOUT CONTRAST CLINICAL INFORMATION: fall head strike COMPARISON: September. TECHNIQUE: Contiguous axial imaging was performed from the skull base to vertex without intravenous administration of contrast. This CT examination was performed using dose optimization techniques as appropriate, variously including the following: *Automated exposure control *Adjustment of mA and/or kV according to patient size (this includes techniques or standardized protocols for targeted exams where dose is matched to indication/reason for exam; i.e. extremities or head) *Use of iterative reconstruction technique DLP: 738.84 mGy-cm FINDINGS: No acute cortical disruption in the right ovarian nor the skull base. No acute intracranial hemorrhage, mass effect, midline shift, hydrocephalus or herniation. Lipscomb-white matter differentiation is normal. Old lacunar infarcts in the basal ganglia and frontal dominguez radiata white matter. No increased density within the MCA's. Calcified plaques in the cavernous supracavernous segments both ICAs. Posterior cranial fossa contents demonstrated no acute hemorrhage. Normal position of the cerebellar tonsils. Sellar/suprasellar region demonstrated no gross masses. Poor pneumatization of the frontal sinuses. No air-fluid levels in the paranasal sinuses. Tympanic cavities and mastoid air cells are aerated. CT/CT head/brain wo IV con IMPRESSION: No acute fracture, bony calvarium. No acute intracranial hemorrhage. Old lacunar infarcts. Small vessel occlusive disease. Atherosclerosis disease, intracranial. MRI Brain Without Contrast: Comparison: CT 10/17/2025 Findings: Non restricted diffusion, (FLAIR positive, T2 positive) is present involving left basal ganglia and internal capsule indicating subacute/chronic infarction older than 10-15 days. An 8.2 mm remote lacunar infarct is present in right subinsular cortex Mass effect: No shift in midline structures Intracranial bleeding: No intraparenchymal bleeding or abnormal extra axial blood fluid collections Pituitary: Normal in size Visualized sinuses: Clear Orbital structures: Unremarkable Calvarium: There is no abnormal meningeal thickening or nodularity Impression: Non restricted diffusion abnormality involving basal ganglion left internal capsule measuring 2.1 x 1.2 cm consistent with chronic stroke older than 10-[address] [address] [address] Scan Report Signed Patient: Octavia Jaffe MR#: [id number] : 1970 Acct:[id number] Age/Sex: 55 / F ADM Date: 10/17/25 Loc: HO.ED Attending Dr: Ordering Physician: Joe Dean Date of Service: 10/17/25 Procedure(s): CT cervical spine wo IV con Accession Number(s): [id number] cc: BETI SWEET MD; Joe Dean~ Report Number: [id number]: Total DLP = 587.00 mGy-cm Reason for Exam: fall neck pain EXAMINATION: CT CERVICAL SPINE WITHOUT CONTRAST CLINICAL INFORMATION: Fall, neck pain COMPARISON: 10/14/2025. TECHNIQUE: Spiral CT imaging of the cervical spine performed in axial plane without contrast. Multiplanar reformatted images were constructed from the axial data set. This CT examination was performed using dose optimization techniques as appropriate, variously including the following: *Automated exposure control *Adjustment of mA and/or kV according to patient size (this includes techniques or standardized protocols for targeted exams where dose is matched to indication/reason for exam; i.e. extremities or head) *Use of iterative reconstruction technique FINDINGS: CORONAL ALIGNMENT: -Normal. SAGITTAL ALIGNMENT: -Mild straightening of the normal lordosis. -No evidence of traumatic subluxation. -There is a 2 mm degenerative anterolisthesis of C4 on C5. Sagittal alignment is otherwise anatomic. C1-C2 AND CRANIOCERVICAL JUNCTION: -Intact and normally aligned. There are mild degenerative changes in the anterior atlantoaxial joint. VERTEBRAL BODIES AND FACETS: -There is no fracture, compression deformity, or suspicious bone lesion. -There is normal facet alignment bilaterally. There are hypertrophic degenerative facet changes on the right mainly at C4-5. DISCS: -Moderate disc degeneration is present at C6-7. Mild disc degeneration is present at C3-4 and C4-5. CENTRAL CANAL: -No evidence of high-grade central canal narrowing or large disc herniation allowing for modality limitations. PREVERTEBRAL AND PARAVERTEBRAL SOFT TISSUES: -There is no evidence of prevertebral or paravertebral soft tissue swelling, edema, or abnormal fluid collection. -The thyroid demonstrates a 6 mm nodule in the inferior right pole. The thyroid is otherwise normal. There is no mass or abnormal lymphadenopathy within the neck. -There are mild to moderate bilateral carotid bulb calcifications. LUNG APICES: -Clear bilaterally. No pneumothorax. CT/CT cervical spine wo IV con IMPRESSION: 1. There is no CT evidence of acute cervical spine fracture or injury. 2. There is mild cervical spondylosis as discussed. Electronically signed by: Dean Hewitt MD 10/17/2025 08:47 AM [facility] Transthoracic Echocardiogram Patient (Last, First, Middle): Octavia Jaffe, Gender: Female Date of : 1970 Age: 55 Procedure Date: 10/17/2025 Procedure Type: Transthoracic Echocardiogram Location: [facility] Height: 152.4 cm Weight: 86.18 kg BSA: 1.83 m2 Heart Rate: bpm BP: 169 / 92 mmHg Black Pickler: Referring MD: Jeannie RAMIREZ Symptoms: recurrent syncope Study Quality: Adequate ECG Rhythm: Sinus Conclusions: - The left ventricular systolic function is normal. The calculated ejection fraction is 58% by biplane method. - There is mildly increased left ventricular wall thickness. - No obvious valvular pathology seen on this study. Findings Left Ventricle Normal left ventricular cavity size. There is mildly increased left ventricular wall thickness. The left ventricular systolic function is normal. The calculated ejection fraction is 58% by biplane method. There is no evidence of regional wall motion abnormalities. Diastolic function is normal for age. Right Ventricle Normal right ventricular cavity size and systolic function. Atria Both atria are normal in size. Aortic Valve There is a normal trileaflet aortic valve. There is no aortic valve stenosis. There is no aortic valve regurgitation. Mitral Valve The mitral valve appears normal. There is no mitral valve regurgitation. There is no mitral valve stenosis. Pulmonic Valve The pulmonic valve is likely normal. Tricuspid Valve There is trace tricuspid valve regurgitation. There is no evidence of pulmonary hypertension. Great Vessels The asc aorta is normal in size. Venous The inferior vena cava is normal in size and collapses greater than 50% with inspiration. Pericardium/Pleural There is no evidence of pericardial effusion. Prior Study Comparison No prior study available for comparison. Recommendations, Care & Conclusions No obvious valvular pathology seen on this study. Measurements 2D Linear Measurements IVSd: 1.13 0.6-0.9/0.6-1.0 cm LVIDd: 3.79 3.9-5.3/4.2-5.9 cm LVIDd Index: 2.07 2.4-3.2/2.2-3.1 cm/m2 LVIDs: 2.39 2.0-3.6 cm LVPWd: 1.14 0.7-1.1 cm LA Diam: 3.70 2.7-3.8/3.0-4.0 cm LAIDs Index: 2.02 1.5-2.3 cm/m2 LV Mass: 174.83 67-162/88-224 g LV Mass Index: 95.54 43-95/49-115 g/m2 LVOT Diam: 2.00 3.0+(-)1.3 cm 2D Systolic Function EF 4C: 59.90 >55% EF 2C: 57.30 >55% EF BiP: 58.10 >55% Mitral Valve MV Pk E: 0.78 MV PK A: 1.14 MV Decel Time: 183.00 E/A: 0.70 E'Lateral: 9.90 E'Medial: 6.09 E/E' Med: 12.80 E/E' Lat: 7.90 PHT: 54.00 MVA PHT: 4.[address] [place]: 4.26 Aortic Valve AoV Pk Bob: 1.46 AoV Mn Bob: 0.87 AoV VTI: 0.35 AoV Pk Grad: 9.00 Aov Mn Grad: 4.00 PB Cont.VTI: 2.20 LVOT LVOT Pk Bob: 0.93 LVOT Mn Bob: 0.63 LVOT VTI: 0.24 LVOT Pk Grad: 3.00 LVOT Mn Grad: 2.00 LVOT Diam: 2.00 LVOT Area: 3.14 Diastolic Function MV Pk E: 0.78 MV Pk A: 1.14 E/A: 0.70 E'Medial: 6.09 E/E' Med: 12.80 E' Laterial: 9.90 E/E' Lat: 7.90 Right Ventricle TAPSE (mm): 23.00 TVS' Bob: 10.00 Tricuspid Valve TR Pk Bob: 1.59 TR Pk Grad: 10.00 RA Press: 3.00 RVSP: 13.00 Great Vessels Aorta Ao Asc: 2.90 2.1-3.4 cm Pulmonary Veins Pulm Vein S/D 1.50 Pulmonary Valve PV Pk Bob: 1.02 Peak PV Grad: 4.00 Updated in Other Vendor System with Status of Final Layton Hartman MD electronically signed on 10/17/2025 3:56:22 PM with status of Final Assessment & Plan Assessment & Plan (1) Seizure disorder: Comment: [place] at [facility] [place]: bitemporal sharps CT brain WO at [facility] [place] in Sep 2025: L basal ganglia area hypodensity MRI brain WO at [facility] [place] in Sep 2025: Subacute L basal ganglia area infarct, chronic smaller b/l deep infarcts CT C spine at [facility] [place] in Sep 2025: DJD TTE at [facility] [place] in Sep 2025: OK EKG at [facility] [place] in Sep 2025: NSR NICS at [facility] [place] in 2021: Mod R ICA stenosis Code(s): G40.909 - Epilepsy, unspecified, not intractable, without status epilepticus Category: Medical (2) Cerebral infarction: Code(s): I63.9 - Cerebral infarction, unspecified Category: Medical Qualifiers: Cerebral infarction mechanism: unspecified mechanism Qualified Code(s): I63.9 - Cerebral infarction, unspecified (3) Carotid stenosis: Code(s): I65.29 - Occlusion and stenosis of unspecified carotid artery Category: Medical Qualifiers: Laterality: right Qualified Code(s): I65.21 - Occlusion and stenosis of right carotid artery (4) Mild dementia: Code(s): F03.A0 - Unspecified dementia, mild, without behavioral disturbance, psychotic disturbance, mood disturbance, and anxiety Category: Medical Qualifiers: Dementia type: vascular dementia Dementia behavioral or psychological symptom: without behavioral, psychotic, or mood disturbance or anxiety Qualified Code(s): F01.A0 - Vascular dementia, mild, without behavioral disturbance, psychotic disturbance, mood disturbance, and anxiety Plan Impression: a: Recent left basal ganglia ischemic infarct with uncontrolled HTN b: Previous multiple ischemic brain lesions c: Cognitive difficulties (mild vascular dementia) due to strokes d: Complex partial seizure disorder e: Polycythemia Rec: a: BP control b: Antiplatelet agent like baby aspirin daily c: She is asked to check her home CO level because her was also diagnosed with polycythemia d: Hematology eval for polycythemia e: Lipid profile f: No alcohol g: CTA brain and neck for carotid disease h: Stay socially and physically active I reviewed the brain MRI with the patient, which shows a recent stroke on the left side as well as evidence of a prior stroke. I explained that her significant and poorly controlled hypertension is the most probable cause for these events and stressed the critical need for strict blood pressure management in coordination with her primary care physician. I also discussed the new finding of polycythemia (an elevated red blood cell count), explaining that it thickens the blood and is another risk factor for stroke. A referral to Hematology was initiated for this. We discussed potential causes, including the rare possibility of environmental factors like carbon monoxide exposure, and I recommended she check the monitor in her home. My diagnostic plan includes a CTA of her neck and brain to evaluate the arteries, and a fasting lipid profile to assess her cholesterol. Regarding prognosis, I informed her that recovery from post-stroke cognitive symptoms typically occurs over three to six months and that staying physically and socially active is paramount for improving outcomes. We will follow up in a couple of months to review the results and her progress. Orders: Orders CT angio head neck Today I63.9 - Cerebral infarction, unspecified, I65.21 - Occlusion and stenosis of right carotid artery Lipid Panel Today I63.9 - Cerebral infarction, unspecified Complete Blood Count Man Dif Today D75.1 - Secondary polycythemia Referrals Hematology & Oncology Referral D75.1 - Secondary polycythemia Coding Level of Care Code Est Pt Level 5 (79569) Diagnoses Seizure disorder G40.909 Cerebral infarction, unspecified mechanism I63.9 Cerebral infarction mechanism: unspecified mechanism Stenosis of right carotid artery I65.21 Laterality: right Mild vascular dementia without behavioral disturbance, psychotic disturbance, mood disturbance, or anxiety F01.A0 Dementia type: vascular dementia Dementia behavioral or psychological symptom: without behavioral, psychotic, or mood disturbance or anxiety Time Spent (min) 45
== END 2025-11-06 15:50 | disposition home or self-care (01) ==
LOC: HO.HSM 15:07
PROVIDERS: PCP Internal Medicine; Visit Provider Psychiatry & Neurology Neurology
DX: G40.909 Epilepsy, unspecified, not intractable, without status epilepticus (principal); I63.9 Cerebral infarction, unspecified; I65.21 Occlusion and stenosis of right carotid artery; F01.A0 Vascular dementia, mild, without behavioral disturbance, psychotic disturbance, mood disturbance, and anxiety
CPT/HCPCS: 99215